=== PATIENT | female | born 1995 | race Caucasian/White ===

== ENCOUNTER 2016-06-09 14:00 | Emergency (ER) | payer OTHER ==
[2016-06-09 14:04] VITALS: BP 125/59; PULSE 122; RESP 16; TEMP 97.6
--- NOTE | 2016-06-09 14:32 | ED ---
General Adult HPI - General Chief complaint: Upper Respiratory Infection Stated complaint: cough Time Seen by Provider: 06/09/16 14:09 Source: patient, RN notes reviewed Mode of arrival: ambulatory Limitations: no limitations - History of Present Illness Initial comments: This is a 20-year-old female who presents with complaints of cough 3 days. Patient also admits to some congestion. Patient states the cough is dry. Patient states cough is painful. Patient denies any shortness of breath. Patient states she has a history of asthma but she is not having any symptoms of shortness of breath. Patient denies any headache, sore throat, otalgia or nausea/vomiting/diarrhea. Patient states she is 7 weeks . Patient denies that she got a flu shot this year. Patient denies any recent fever, chills, shortness breath, chest pain, abdominal pain, cramping, vaginal discharge or bleeding, back pain, numbness, tingling, hematuria, headache, or visual changes, or any other complaints. - Related Data Previous Rx's Medication Instructions Recorded Oseltamivir [Tamiflu] 75 mg PO Q12HR 5 Days 06/09/16 Allergies Allergy/AdvReac Type Severity Reaction Status Date / Time azithromycin Allergy Itching Verified 06/09/16 14:04 cetirizine HCl [From Zyrtec] Allergy Swelling Verified 06/09/16 14:04 codeine Allergy Itching Verified 06/09/16 14:04 Review of Systems ROS Statement: Those systems with pertinent positive or pertinent negative responses have been documented in the HPI. ROS Other: All systems not noted in ROS Statement are negative. Past Medical History Past Medical History: Asthma Additional Past Medical History / Comment(s): OVARIAN CYSTS History of Any Multi-Drug Resistant Organisms: None Reported Past Surgical History: Adenoidectomy, Ear Surgery Past Anesthesia/Blood Transfusion Reactions: No Reported Reaction Past Psychological History: No Psychological Hx Reported Smoking Status: Never smoker Past Alcohol Use History: None Reported Past Drug Use History: None Reported - Past Family History Father Family Medical History: No Reported History General Exam - General Exam Comments Initial Comments: General: The patient is awake and alert, in no distress, and does not appear acutely ill. Eye: Pupils are equal, round and reactive to light, extra-ocular movements are intact. No nystagmus. There is normal conjunctiva bilaterally. No signs of icterus. Ears: TMs pink and pearly with intact cone of light bilaterally. Normal external ear canals Nose: Nasal turbinates are mildly erythematous and edematous. Mouth and throat: There are moist mucous membranes and no oral lesions. Neck: The neck is supple, there is no tenderness or JVD. Cardiovascular: There is a regular rate and rhythm. No murmur, rub or gallop is appreciated. Respiratory: Lungs are clear to auscultation, respirations are non-labored, breath sounds are equal. No wheezes, stridor, rales, or rhonchi. Musculoskeletal: Normal ROM, no tenderness. Strength 5/5. Sensation intact. Radial Pulses equal bilaterally 2+. Neurological: A&O x 3. CN II-XII intact, There are no obvious motor or sensory deficits. Coordination appears grossly intact. Speech is normal. Skin: Skin is warm and dry and no rashes or lesions are noted. Psychiatric: Cooperative, appropriate mood & affect, normal judgment. Limitations: no limitations Course Vital Signs 06/09/16 14:02 Temperature 97.6 F Pulse Rate 122 H Respiratory 16 Rate Blood Pressure 125/59 O2 Sat by Pulse 97 Oximetry Medical Decision Making - Medical Decision Making This is a 20-year-old female presents with cough and congestion 3 days. Patient is 7 weeks . On physical exam patient is afebrile in the EC. Lungs are clear to auscultation bilaterally. Dry cough is present on exam. Influenza was checked. I discussed the risks and benefits of chest x-ray because the patient is . Patient refuses chest X-ray. Influenza A came back positive. I discussed the patient will be started on Tamiflu. Patient was given a dose in the EC. I discussed starting Tamiflu with attending physician Dr. Estrada because the patient is . Dr. Estrada agrees that patient should be started on Tamiflu. Discussed the patient should drink plenty of fluids. I discussed Tylenol for any fevers. I discussed return parameters.Discussed that patient should follow up with PCP/PST MANAGER in one to 2 days or return to the EC for any worsening symptoms or for any further concerns. Patient was receptive to this plan and patient will be discharged home. I discussed this case with attending physician Dr. Estrada who agrees the plan as stated above. - Lab Data Lab Results 06/09/16 Range/Units 14:32 Influenza Type A RNA Detected H (Not Detectd) Influenza Type B (PCR) Not Detected (Not Detectd) Disposition Clinical Impression: Influenza A Disposition: HOME SELF-CARE Condition: Good Instructions: Influenza Vaccine (ED), Influenza (ED) Additional Instructions: Use Tamiflu as prescribed. Please use Tylenol for any pain. Please be sure to drink plenty of fluids. Please follow-up with family doctor and PST MANAGER in the next 2 days. Please return to emergency room if the symptoms increase or worsen or for any other concerns. Prescriptions: Oseltamivir [Tamiflu] 75 mg PO Q12HR 5 Days Referrals: Kailash Villa DO [Primary Care Provider] - 1-2 days Time of Disposition: 15:22
[2016-06-09] MEDS ORDERED: OSELTAMIVIR 75 MG CAP PO STA (15:19)
== END 2016-06-09 15:51 | disposition home or self-care (01) ==
LOC: EC 14:00
DX: O99.511 Diseases of the respiratory system complicating pregnancy, first trimester (principal); J10.1 Influenza due to other identified influenza virus with other respiratory manifestations; Z88.1 Allergy status to other antibiotic agents; Z88.8 Allergy status to other drugs, medicaments and biological substances; Z3A.01 Less than 8 weeks gestation of pregnancy
CPT/HCPCS: 87502; 99283

== ENCOUNTER 2018-08-27 18:21 | Outpatient (CLI) | payer OTHER ==
[2018-08-27 19:04] VITALS: BP 125/70; PULSE 100; RESP 16; TEMP 99.1
--- NOTE | 2018-09-23 09:02 | P.MSEPDOC ---
Presenting Problems - Arrival Data Date of Arrival on Unit: 08/27/18 Time of Arrival on Unit: 18:21 Mode of Transport: Ambulatory - Complaint OB-Reason for Admission/Chief Complaint: Possible Onset of Labor Comment: contractions Medical History - Information : 4 Para: 2 Term: 2 : 0 Abortions: Spontaneous or Elective: 1 Number of Living Children: 2 - Gestational Age Gestational Age by SANTA (wks/days): 25 Weeks and 4 Days Review of Systems - Review of Systems Constitutional: No problems Breast: No problems ENT: No problems Cardiovascular: No problems Respiratory: No problems Gastrointestinal: No problems Genitourinary: No problems Musculoskeletal: No problems Neurological: No problems Skin: No problems Vital Signs - Temperature Temperature: 99.1 F Temperature Source: Oral - Pulse Right Brachial Pulse Rate: 100 Pulse Assessment Method: Automatic Cuff - Respirations Respiratory Rate: 16 Oxygen Delivery Method: Room Air - Blood Pressure Right Arm Blood Pressure: 125/70 Blood Pressure Mean: 88 Blood Pressure Source: Automatic Cuff Medical Screen Scoring (Pre) - Cervical Exam Dilation: 0 cm = 0 Membranes: Intact - Uterine Contractions Frequency: N/A Duration: N/A Intensity: N/A - Maternal Vital Signs Maternal Temperature: N/A Signs of Preeclampsia: N/A Maternal Respirations: N/A - Maternal Trauma Maternal Trauma: N/A - Assessment - Baby A Baseline FHR: 150 Heart Rate - NICHD Category: Category I (Normal) = 0 Position: N/A Station: N/A - Total Score - Baby A Total Score - Baby A: 0 - Total Score - Baby B Total Score - Baby B: 0 - Total Score - Baby C Total Score - Baby C: 0 - Level of Risk - Baby A Level of Risk - Baby A: Low (0-5) - Level of Risk - Baby B Level of Risk - Baby B: Low (0-5) - Level of Risk - Baby C Level of Risk - Baby C: Low (0-5) Physician Notification (Pre) - Physician Notified Physician Notified Date: 08/27/18 Physician Notified Time: 19:04 Physician/Practitioner Notifed:: Esau Spoke With: Esau New Order Received: Yes - Notification Comment Comment: obtain FFN Physician Notification (Post) - Physician Notified Physician Notified Date: 08/27/18 Physician Notified Time: 19:06 Physician/Practitioner Notified:: Esau Spoke With: Esau New Order Received: Yes - Notification Comment Comment: do not send FFN and pt may be discharged home Disposition - Disposition OB Disposition: Discharge to home Discharge Date: 08/27/18 Discharge Time: 19:06 I agree with the RN Medical Screening Exam: Yes Risk & Benefit of care provided described in d/c instruction: Yes Diagnosis: FALSE LABOR BEFORE 37 COMPLETED WEEKS OF GEST, THIRD TRI
== END 2018-08-27 19:08 | disposition home or self-care (01) ==
LOC: FBPOP 18:21
PROVIDERS: ATTEND Obstetrics & Gynecology Obstetrics
DX: O47.02 False labor before 37 completed weeks of gestation, second trimester (principal); Z3A.25 25 weeks gestation of pregnancy
CPT/HCPCS: 99213

== ENCOUNTER 2018-11-17 11:43 | Outpatient (CLI) | payer OTHER ==
[2018-11-17 12:23] LABS: Appearance,Urine Cloudy (Clear); Bacteria,Urine Rare /hpf; Bilirubin,Urine Negative (Negative); Blood,Urine Trace (Negative); Color,Urine Yellow; Glucose,Urine (UA) Negative (Negative); Ketones,Urine Trace (Negative); Leukocyte Esterase,Urine Negative (Negative); Mucus,Urine Rare /hpf; Nitrite,Urine Negative (Negative); PH, Urine 6.5 (5.0-8.0); Protein,Urine Trace (Negative); RBC,Urine 2 /hpf (0-5); Specific Gravity,Urine 1.013 (1.001-1.035); Squamous Epithelial Cell,Urine 15 /hpf (0-4); Urobilinogen,Urine <2.0 mg/dL (<2.0); WBC,Urine 2 /hpf (0-5)
[2018-11-17 12:51] VITALS: BP 133/61; PULSE 113; RESP 16; TEMP 96.8
[2018-11-17 12:51] LABS: Anisocytosis Slight; Basophils % (A) 0 %; Eosinophils # (A) 0.1 k/uL (0-0.7); Eosinophils % (A) 1 %; HCT 31.9 % (34.0-46.0); HGB 10.1 gm/dL (11.4-16.0); Hypochromasia Moderate; Lymphocytes # (A) 0.9 k/uL (1.0-4.8); Lymphocytes % (A) 14 %; MCH 24.3 pg (25.0-35.0); MCHC 31.5 g/dL (31.0-37.0); MCV 77.2 fL (80.0-100.0); Microcytosis Slight; Monocytes # (A) 0.5 k/uL (0-1.0); Monocytes % (A) 8 %; Neutrophils # (A) 4.8 k/uL (1.3-7.7); Neutrophils % (A) 74 %; Platelet Count 272 k/uL (150-450); RBC 4.14 m/uL (3.80-5.40); RDW 16.2 % (11.5-15.5); WBC 6.5 k/uL (3.8-10.6)
[2018-11-17 13:00] LABS: ALT 14 U/L (9-52); AST 17 U/L (14-36); African American GFR (CKD) >90 (>60 ml/min/1.73 sqM); Blood Urea Nitrogen 6 mg/dL (7-17); LDH 452 U/L (313-618); Uric Acid 4.1 mg/dL (3.7-7.4)
--- NOTE | 2018-11-23 10:48 | P.MSEPDOC ---
Presenting Problems - Arrival Data Date of Arrival on Unit: 11/17/18 Time of Arrival on Unit: 11:41 Mode of Transport: Ambulatory - Complaint OB-Reason for Admission/Chief Complaint: PIH Medical History - Information : 4 Para: 3 Number of Living Children: 3 - Gestational Age Gestational Age by SANTA (wks/days): 37 Weeks and 2 Days Review of Systems - Review of Systems Constitutional: No problems Breast: No problems ENT: No problems Cardiovascular: No problems Respiratory: No problems Gastrointestinal: No problems Genitourinary: No problems Musculoskeletal: No problems Neurological: No problems Skin: No problems Vital Signs - Temperature Temperature: 96.8 F Temperature Source: Temporal Artery Scan - Pulse Right Sitting Brachial Pulse Rate: 113 Pulse Assessment Method: Automatic Cuff - Respirations Respiratory Rate: 16 Oxygen Delivery Method: Room Air O2 Sat by Pulse Oximetry: 99 - Blood Pressure Right Arm Sitting Blood Pressure: 133/61 Blood Pressure Mean: 85 Blood Pressure Source: Automatic Cuff Medical Screen Scoring (Pre) - Cervical Exam Dilation: Exam Deferred - Uterine Contractions Frequency: N/A Duration: N/A Intensity: N/A - Maternal Vital Signs Maternal Temperature: N/A Maternal Blood Pressure: N/A Signs of Preeclampsia: N/A Maternal Respirations: N/A - Maternal Trauma Maternal Trauma: N/A - Assessment - Baby A Baseline FHR: 140 Heart Rate - NICHD Category: Category I (Normal) = 0 NST: Reactive Position: N/A Station: N/A - Total Score - Baby A Total Score - Baby A: 0 - Total Score - Baby B Total Score - Baby B: 0 - Total Score - Baby C Total Score - Baby C: 0 - Level of Risk - Baby A Level of Risk - Baby A: Low (0-5) - Level of Risk - Baby B Level of Risk - Baby B: Low (0-5) - Level of Risk - Baby C Level of Risk - Baby C: Low (0-5) Physician Notification (Pre) - Physician Notified Physician Notified Date: 11/17/18 Physician Notified Time: 13:15 Physician/Practitioner Notifed:: dr mcclain Spoke With: dr mcclain New Order Received: Yes - Notification Comment Comment: discharge home at this time Disposition - Disposition OB Disposition: Discharge to home Discharge Date: 11/17/18 Discharge Time: 13:24 I agree with the RN Medical Screening Exam: Yes Risk & Benefit of care provided described in d/c instruction: Yes Diagnosis: RELATED CONDITIONS, UNSPECIFIED, THIRD TRIMESTER
== END 2018-11-17 13:24 | disposition home or self-care (01) ==
LOC: FBPOP 11:43
PROVIDERS: ATTEND Obstetrics & Gynecology
DX: O26.93 Pregnancy related conditions, unspecified, third trimester (principal); Z3A.37 37 weeks gestation of pregnancy
CPT/HCPCS: 59025; 82570; 84156; 82565; 83615; 84450; 84460; 84520; 84550; 85025; 81001; G0463; 99215

== ENCOUNTER 2018-12-02 07:18 | Inpatient (IN) | payer OTHER ==
[2018-12-02] MEDS ORDERED: TERBUTALINE 1 MG/ML VIAL SQ PRN (07:31)
[2018-12-02] MEDS ORDERED: OXYTOCIN 10 UNIT/ML 1 ML VIAL IM PRN (07:31)
[2018-12-02] MEDS ORDERED: LIDOCAINE 0.5% (PF) 5 MG/ML (50 ML SDV) SQ PRN (07:31)
[2018-12-02] MEDS ORDERED: METHYLERGONOVINE 0.2 MG/ML 1 ML AMP IM PRN (07:31)
[2018-12-02] MEDS ORDERED: CARBOPROST TROMETHAMINE 250 MCG/ML 1 ML AMP IM PRN (07:31)
[2018-12-02] MEDS ORDERED: PENICILLIN G POTASSIUM 5,000,000 UNIT in DEXTROSE 5% IN WATER 100 ML IVPB STA ×2 (07:38)
[2018-12-02] MEDS ORDERED: LACTATED RINGERS 1,000 ML IV SCH (07:45)
[2018-12-02] MEDS ORDERED: OXYTOCIN 30 UNITS/500 ML NS 30 UNIT in SALINE 1 500ML.BAG IV SCH (07:45)
[2018-12-02 07:57] VITALS: BMI 50.4
[2018-12-02] MEDS ORDERED: BUTORPHANOL 1 MG/ML 1 ML VIAL IV PRN (08:41)
--- NOTE | 2018-12-02 08:48 | P.HPOB ---
History of Present Illness H&P Date: 12/02/18 Chief Complaint: 39-3/7 weeks, induction The patient is a 23-year-old 4 para 2012 admitted at 39-3/7 weeks as established by last menstrual period and confirmed by 19 week ultrasound. She is admitted for elective induction of labor with all signs reassuring. Her pr egnancy has been essentially uncomplicated and group B strep status is unknown as to group B strep culture was misplaced. As result she will be treated as group B strep positive. She is also known to be Rh- and received RhoGAM at 28 weeks. She has requested tubal ligation which will be carried out should she require . Obstetrical history: 4 para 201-2 previous normal spontaneous vaginal deliveries and one early miscarriage. Current statistics are listed in history present illness. EDC of 12/06/2018 was established by last menstrual period and confirmed by 19 week ultrasound. Laboratory workup demonstrates a blood type of O- with a negative antibody screen. Rubella status is immune. The remainder of the laboratory workup was within normal limits. Early Glucola as well as second trimester Glucola were within normal limits. Group B strep status is unknown as the specimen was misplaced. Gynecologic history: Unremarkable with no history of any infections to include STDs. Review of Systems Review of systems is confined to history of present illness. Past Medical History Past Medical History: Asthma Additional Past Medical History / Comment(s): OVARIAN CYSTS History of Any Multi-Drug Resistant Organisms: None Reported Past Surgical History: Adenoidectomy, Ear Surgery Past Anesthesia/Blood Transfusion Reactions: No Reported Reaction Past Psychological History: Anxiety, Depression Smoking Status: Never smoker Past Alcohol Use History: None Reported Past Drug Use History: None Reported - Past Family History Mother Family Medical History: Cancer, Hypertension Father History Unknown: Yes Family Medical History: Hypertension Medications and Allergies Home Medications Medication Instructions Recorded Confirmed Type Ondansetron [Zofran] 4 mg PO Q12HR PRN 08/27/18 08/27/18 History Pnv No.95/Ferrous Fum/Folic AC 1 tab PO DAILY 08/27/18 08/27/18 History [ Multivitamin Tablet] Allergies Allergy/AdvReac Type Severity Reaction Status Date / Time azithromycin Allergy Itching Verified 11/17/18 11:58 cetirizine HCl [From Zyrte] Allergy Swelling Verified 11/17/18 11:58 codeine Allergy Itching Verified 11/17/18 11:58 Exam Vital Signs Temp Pulse Resp BP Pulse Ox 12/02/18 07:18 97.4 F L 101 H 16 137/82 98 Intake and Output 12/01/18 12/02/18 12/02/18 22:59 06:59 14:59 Other: Weight 146.057 kg In general this is a moderately obese woman in no acute distress. Her heart has a regular rhythm and rate without murmur. Her lungs are clear to auscultation bilaterally in all whitehead. Her abdomen is obese, nondistended, has normal active bowel sounds, soft, nontender, and without any palpable masses aside from uterine fundus. Her extremities without any cyanosis, clubbing, or significant edema and are nontender to palpation bilaterally. Digital cervical examination demonstrates her cervix to 3-4 synovators dilated, approximately 50% effaced with the vertex in presentation at -2 station. Artificial rupture of membranes is carried out demonstrating clear fluid. Assessment and Plan (1) Term Current Visit: Yes Status: Acute Code(s): Z34.90 - ENCNTR FOR SUPRVSN OF NORMAL , UNSP, UNSP TRIMESTER SNOMED Code(s): 54293941 Plan: The patient is admitted for elective induction of labor understanding that there may be a slightly increased risk for delivery. As her group B strep status is unknown as noted above, she will be treated as if positive and antibiotics have been started. Pitocin augmentation will be held for short time in order to attempt to get the antibiotics on board of. She will otherwise have close maternal and surveillance and expectant management will be practiced. She is a good candidate for either IV or epidural analgesia, whichever she may choose.
[2018-12-02 09:11] LABS: Anisocytosis Slight; Basophils # (A) 0.1 k/uL (0-0.2); Basophils % (A) 1 %; Eosinophils # (A) 0.1 k/uL (0-0.7); Eosinophils % (A) 1 %; HCT 32.7 % (34.0-46.0); HGB 10.2 gm/dL (11.4-16.0); Hypochromasia Moderate; Lymphocytes # (A) 1.6 k/uL (1.0-4.8); Lymphocytes % (A) 19 %; MCH 23.8 pg (25.0-35.0); MCHC 31.2 g/dL (31.0-37.0); MCV 76.1 fL (80.0-100.0); Mean Platelet Volume 7.8; Microcytosis Slight; Monocytes # (A) 0.8 k/uL (0-1.0); Monocytes % (A) 9 %; Neutrophils # (A) 5.5 k/uL (1.3-7.7); Neutrophils % (A) 67 %; Platelet Count 221 k/uL (150-450); RDW 16.2 % (11.5-15.5); WBC 8.1 k/uL (3.8-10.6)
[2018-12-02] MEDS ORDERED: PENICILLIN G POTASSIUM 2,500,000 UNIT in DEXTROSE 5% IN WATER 100 ML IVPB SCH ×2 (11:41)
[2018-12-02] MEDS ORDERED: diphenhydrAMINE 25 MG CAP PO PRN (16:18)
[2018-12-02] MEDS ORDERED: LANOLIN CREAM 5 GM TUBE TOPICAL PRN (16:18)
[2018-12-02] MEDS ORDERED: diphenhydrAMINE 50 MG CAP PO PRN (16:18)
[2018-12-02] MEDS ORDERED: BENZOCAINE/MENTHOL SPRAY 1 GM/SPRAY AEROSOL TOPICAL PRN (16:18)
[2018-12-02] MEDS ORDERED: HYDROcodone/APAP 5-325MG 1 EACH TAB PO PRN (16:18)
[2018-12-02] MEDS ORDERED: SIMETHICONE 80 MG CHEWABLE PO PRN (16:18)
[2018-12-02] MEDS ORDERED: WITCH HAZEL 1 EACH MED..PAD TOPICAL PRN (16:18)
[2018-12-02] MEDS ORDERED: diphenhydrAMINE 50 MG/ML 1 ML VIAL IVP PRN ×2 (16:18)
[2018-12-02] MEDS ORDERED: HYDROCORTISONE 2.5% RECTAL CREAM 30 GM TUBE RECTAL PRN (16:18)
[2018-12-02] MEDS ORDERED: HYDROcodone/APAP 7.5-325MG 1 EACH TAB PO PRN (16:18)
[2018-12-02] MEDS ORDERED: IBUPROFEN 600 MG TAB PO PRN (16:18)
[2018-12-02] MEDS ORDERED: ZOLPIDEM 5 MG TAB PO PRN (16:18)
--- NOTE | 2018-12-02 16:24 | P.PROBDLV ---
Vaginal Delivery Note - . Vaginal Delivery Note: The patient is a 23-year-old 4 para 2011 admitted at 39-3/7 weeks by good dating parameters. She is admitted for elective induction of labor with all signs reassuring. Her has been essentially uncomplicated though group B strep status is unknown as the specimen was was placed. She is known to be Rh- and received RhoGAM at 28 weeks. On labor and delivery, antibody prophylaxis was started for possible group B strep. She had artificial rupture of membranes carried out demonstrating clear fluid and had Pitocin augmentation started and ultimately. She made progress through the active phase of labor fairly slowly but then suddenly progressed to complete with a significant urge to push and no epidural in place per her wishes. I was called urgently to the hospital for delivery and arrived shortly after delivery had been carried out by the nurses. She had a precipitous normal spontaneous vaginal delivery of a viable 8 lbs. 7 oz. baby boy with Apgars of 9 at 1 minute and 9 at 5 minutes delivered in the occiput anterior position. cord blood was collected for evaluation for the necessity of RhoGAM. The placenta was delivered spontaneously, intact, and grossly normal with a grossly normal, centrally inserted and very long three-vessel cord. There was a small first-degree perineal laceration which a flap of skin was created on the left perineal body which was tacked down with a single [id number] stitch of 3-0 chromic catgut without difficulty. Estimated blood loss for the entire case was approximately 250 mL. There were no complications aside from the precipitous nature of the delivery. All sponge, instrument, and needle counts were correct. Both mother and are resting comfortably in recovery.
[2018-12-02] MEDS ORDERED: OXYTOCIN 20 UNITS/1000 ML NS 1,000 ML IV SCH (16:30)
[2018-12-02] MEDS: SENNOSIDES-DOCUSATE SODIUM 1 EACH TAB PO SCH (19:36)
[2018-12-02] MEDS ORDERED: Rhogam IMMUNE GLOBULIN 1,500 UNIT/1 ML IM ONE (23:06)
[2018-12-03] MEDS: ACETAMINOPHEN TAB 325 MG TAB PO PRN ×3 (00:08→14:22)
--- NOTE | 2018-12-03 06:26 | P.DS ---
Providers Date of admission: 12/02/18 07:18 Expected date of discharge: 12/03/18 Attending physician: Isai Anderson Primary care physician: Stated None - Discharge Diagnosis(es) (1) Term Current Visit: Yes Status: Acute (2) Normal spontaneous vaginal delivery Current Visit: Yes Status: Acute Hospital Course: The patient is a 23-year-old 4 para 2012 admitted at 39-3/7 weeks by good dating parameters. She is admitted for elective induction of labor with all signs reassuring. She is Rh- and received RhoGAM at 28 weeks but otherwise had an uncomplicated . On labor and delivery, she had antibiotic prophylaxis started as group B strep status was unknown, the specimen having been misplaced at 36 weeks. She had artificial rupture of membranes carried out demonstrating clear fluid and ultimately had Pitocin augmentation started. She made fairly steady progress throughout the active phase of labor to complete and then precipitously delivered, normal spontaneous vaginal delivery of a viable 8 lbs. 7 oz. baby boy with Apgars of 9 at 1 minute and 9 at 5 minutes. Her course was unremarkable vital signs remained stable and her temperature was afebrile throughout. She was deemed stable for discharge on day #1 was discharged home to follow-up in the office in 6 weeks routinely. Discharge instructions included calling for any significantly increased bleeding or foul-smelling lochia, significantly increased fever abdominal pain, perineal complaints, breast complaints, or anything else that concerned her. She was additionally instructed to have nothing in the vagina for at least 6 weeks time to include intercourse. She understood her instructions and agrees to follow up as noted above. Discharge medications included only [id number] analgesic pain medications as well as continued vitamins as she has opted to breast-feed. She was additionally given a prescription for Zoloft 50 mg daily as she has struggled with depression in the past, #30 dispensed with 11 refills. Maternal blood type is O- and cord blood was sent for evaluation for the necessity of RhoGAM prior to discharge. Rubella status is immune. Procedures: #1. Pitocin induction of 2. Antibiotic prophylaxis #3. Artificial rupture of membranes #4. Normal spontaneous vaginal delivery Patient Condition at Discharge: Good Plan - Discharge Summary Discharge Rx Participant: Yes New Discharge Prescriptions: No Action Ondansetron [Zofran] 4 mg PO Q12HR PRN PRN Reason: Nausea Pnv No.95/Ferrous Fum/Folic AC [ Multivitamin Tablet] 1 tab PO DAILY Discharge Medication List Ondansetron [Zofran] 4 mg PO Q12HR PRN 08/27/18 [History] Pnv No.95/Ferrous Fum/Folic AC [ Multivitamin Tablet] 1 tab PO DAILY 08/27/18 [History] Follow up Appointment(s)/Referral(s): Isai Anderson MD [STAFF PHYSICIAN] - 6 Weeks Discharge Disposition: HOME SELF-CARE
[2018-12-03] MEDS: SENNOSIDES-DOCUSATE SODIUM 1 EACH TAB PO SCH (08:51)
[2018-12-03 19:50] VITALS: BP 120/70; PULSE 87; RESP 16; TEMP 98.4
== END 2018-12-03 18:45 | disposition home or self-care (01) | DRG 807 ==
LOC: 4FBP 07:18
PROVIDERS: ADMIT Obstetrics & Gynecology; ATTEND Obstetrics & Gynecology
PROC: 10E0XZZ Delivery of Products of Conception, External Approach (ICD-10-PCS; principal; 2018-12-02)
PROC: 0HQ9XZZ Repair Perineum Skin, External Approach (ICD-10-PCS; 2018-12-02)
PROC: 10907ZC Drainage of Amniotic Fluid, Therapeutic from Products of Conception, Via Natural or Artificial Opening (ICD-10-PCS; 2018-12-02)
PROC: 3E033VJ Introduction of Other Hormone into Peripheral Vein, Percutaneous Approach (ICD-10-PCS; 2018-12-02)
DX: O26.893 Other specified pregnancy related conditions, third trimester (principal); Z37.0 Single live birth; O70.0 First degree perineal laceration during delivery; O99.344 Other mental disorders complicating childbirth; F32.9 Major depressive disorder, single episode, unspecified; F41.9 Anxiety disorder, unspecified; O99.52 Diseases of the respiratory system complicating childbirth; J45.909 Unspecified asthma, uncomplicated; O62.3 Precipitate labor; Z67.91 Unspecified blood type, Rh negative; O99.214 Obesity complicating childbirth; Z3A.39 39 weeks gestation of pregnancy; Z88.1 Allergy status to other antibiotic agents; Z88.5 Allergy status to narcotic agent; Z82.49 Family history of ischemic heart disease and other diseases of the circulatory system; Z80.9 Family history of malignant neoplasm, unspecified
CPT/HCPCS: 85025; 85461; 86850; 86900; 86901

== ENCOUNTER 2019-08-18 10:19 | Observation (INO) | payer OTHER ==
[2019-08-18] MEDS ORDERED: SODIUM CHLORIDE 0.9% 1,000 ML IV ONE (10:48)
[2019-08-18] MEDS ORDERED: HYDROmorphone 0.5 MG/0.5 ML SYRINGE IVP STA ×2 (10:48→13:11)
[2019-08-18] MEDS ORDERED: ONDANSETRON 4 MG/2 ML VIAL IVP STA (10:48)
--- NOTE | 2019-08-18 10:52 | ED ---
Abdominal Pain HPI - General Chief Complaint: Abdominal Pain Stated Complaint: right abd pain Time Seen by Provider: 08/18/19 10:26 Source: patient, family Mode of arrival: ambulatory Limitations: no limitations - History of Present Illness Initial Comments: 24-year-old female presenting today for chief complaint of right upper quadrant abdominal pain x 16 hours. Patient states since May is on on and off her upper quadrant pain usually after eating. Patient states he specifically increases with eating fatty foods. She states it usually lasts about 2 hours and then goes away. She states that she began to have an attack after eating kielbasa last night but this episode was persistent and has no lasted into the morning. Patient denies admits to nausea, vomiting. Denies diarrhea, melena hematochezia, emesis. Patient denies fevers, malaise. Patient has no additional complaints. Upon arrival patient appears nontoxic but does appear uncomfortable. - Related Data Home Medications Medication Instructions Recorded Confirmed No Known Home Medications 08/18/19 08/18/19 Allergies Allergy/AdvReac Type Severity Reaction Status Date / Time azithromycin Allergy Itching Verified 08/18/19 10:50 cetirizine HCl [From Zyr[facility]] Allergy Swelling Verified 08/18/19 10:50 codeine Allergy Itching Verified 08/18/19 10:50 Review of Systems ROS Statement: Those systems with pertinent positive or pertinent negative responses have been documented in the HPI. ROS Other: All systems not noted in ROS Statement are negative. Past Medical History Past Medical History: Asthma Additional Past Medical History / Comment(s): OVARIAN CYSTS History of Any Multi-Drug Resistant Organisms: None Reported Past Surgical History: Adenoidectomy, Ear Surgery Past Anesthesia/Blood Transfusion Reactions: No Reported Reaction Past Psychological History: Anxiety, Depression Smoking Status: Never smoker Past Alcohol Use History: None Reported Past Drug Use History: None Reported - Past Family History Mother Family Medical History: Cancer, Hypertension Father History Unknown: Yes Family Medical History: Hypertension General Exam - General Exam Comments Initial Comments: General: The patient is awake and alert, in no distress Eye: +3 mm pupils are equal, round and reactive to light, extra-ocular movements are intact. No nystagmus. There is normal conjunctiva bilaterally. No signs of icterus. Ears, nose, mouth and throat: There are moist mucous membranes and no oral lesions. Neck: The neck is supple, there is no tenderness or JVD. Cardiovascular: There is a regular rate and rhythm. No murmur, rub or gallop is appreciated. Respiratory: Lungs are clear to auscultation, respirations are non-labored, breath sounds are equal. No wheezes, stridor, rales, or rhonchi. Gastrointestinal: Soft, non-distended,RUQ tender to palpation of the abdomen, remainign abdomen is nontender and without masses or organomegaly noted. There is no rebound or guarding present. No CVA tenderness. Bowel sounds are unremarkable.+ murphys sign. Musculoskeletal: Normal ROM, no tenderness. Strength 5/5. Sensation intact. Radial pulses equal bilaterally 2+. Neurological: A&O x 3. CN II-XII intact grossly, There are no obvious motor or sensory deficits. Coordination appears grossly intact. Speech is normal. Skin: Skin is warm and dry and no rashes or lesions are noted. Psychiatric: Cooperative, appropriate mood & affect, normal judgment. Limitations: no limitations Course Vital Signs 08/18/19 08/18/19 08/18/19 10:20 13:00 14:34 Temperature 98.1 F Pulse Rate 89 58 L 65 Respiratory 18 18 20 Rate Blood Pressure 118/80 122/61 133/80 O2 Sat by Pulse 99 100 100 Oximetry Medical Decision Making - Medical Decision Making Ultrasound concerning for cholelithiasis with sludge. Patient pain intractable, persistent despite Dilaudid therapy. pt case discussed wtih Dr. Linder who recommended surgical consultation. DR Cohen is agreeable to admission for symptomatic treatment and possible elective cholecystectomy. Patient agreeable to this care plan--Dr. Linder agreeable to care plan. - Lab Data Result diagrams: 08/18/19 10:55 08/18/19 10:55 Lab Results 08/18/19 08/18/19 08/18/19 Range/Units 10:38 10:38 10:55 WBC 9.2 (3.8-10.6) k/uL RBC 4.70 (3.80-5.40) m/uL Hgb 11.4 (11.4-16.0) gm/dL Hct 37.4 (34.0-46.0) % MCV 79.6 L (80.0-100.0) fL MCH 24.2 L (25.0-35.0) pg MCHC 30.3 L (31.0-37.0) g/dL RDW 15.6 H (11.5-15.5) % Plt Count 311 (150-450) k/uL Neutrophils % 77 % Lymphocytes % 13 % Monocytes % 7 % Eosinophils % 1 % Basophils % 0 % Neutrophils # 7.0 (1.3-7.7) k/uL Lymphocytes # 1.2 (1.0-4.8) k/uL Monocytes # 0.7 (0-1.0) k/uL Eosinophils # 0.1 (0-0.7) k/uL Basophils # 0.0 (0-0.2) k/uL Hypochromasia Slight Sodium (137-145) mmol/L Potassium (3.5-5.1) mmol/L Chloride (98-107) mmol/L Carbon Dioxide (22-30) mmol/L Anion Gap mmol/L BUN (7-17) mg/dL Creatinine (0.52-1.04) mg/dL Est GFR (CKD-EPI)AfAm (>60 ml/min/1.73 sqM) Est GFR (CKD-EPI)NonAf (>60 ml/min/1.73 sqM) Glucose (74-99) mg/dL Calcium (8.4-10.2) mg/dL Total Bilirubin (0.2-1.3) mg/dL AST (14-36) U/L ALT (4-34) U/L Alkaline Phosphatase (38-126) U/L Total Protein (6.3-8.2) g/dL Albumin (3.5-5.0) g/dL Amylase (30-110) U/L Lipase (23-300) U/L Urine Color Light Yellow Urine Appearance Clear (Clear) Urine pH 7.5 (5.0-8.0) Ur Specific [place] 1.010 (1.001-1.035) Urine Protein Negative (Negative) Urine Glucose (UA) Negative (Negative) Urine Ketones Negative (Negative) Urine Blood Trace H (Negative) Urine Nitrite Negative (Negative) Urine Bilirubin Negative (Negative) Urine Urobilinogen <2.0 (<2.0) mg/dL Ur Leukocyte Esterase Negative (Negative) Urine RBC 2 (0-5) /hpf Urine WBC <1 (0-5) /hpf Ur Squamous Epith Cells 9 H (0-4) /hpf Urine Mucus Rare H (None) /hpf Urine HCG, Qual Not Detected (Not Detectd) 08/18/19 Range/Units 10:55 WBC (3.8-10.6) k/uL RBC (3.80-5.40) m/uL Hgb (11.4-16.0) gm/dL Hct (34.0-46.0) % MCV (80.0-100.0) fL MCH (25.0-35.0) pg MCHC (31.0-37.0) g/dL RDW (11.5-15.5) % Plt Count (150-450) k/uL Neutrophils % % Lymphocytes % % Monocytes % % Eosinophils % % Basophils % % Neutrophils # (1.3-7.7) k/uL Lymphocytes # (1.0-4.8) k/uL Monocytes # (0-1.0) k/uL Eosinophils # (0-0.7) k/uL Basophils # (0-0.2) k/uL Hypochromasia Sodium 135 L (137-145) mmol/L Potassium 4.3 (3.5-5.1) mmol/L Chloride 106 (98-107) mmol/L Carbon Dioxide 24 (22-30) mmol/L Anion Gap 5 mmol/L BUN 11 (7-17) mg/dL Creatinine 0.64 (0.52-1.04) mg/dL Est GFR (CKD-EPI)AfAm >90 (>60 ml/min/1.73 sqM) Est GFR (CKD-EPI)NonAf >90 (>60 ml/min/1.73 sqM) Glucose 99 (74-99) mg/dL Calcium 9.2 (8.4-10.2) mg/dL Total Bilirubin 0.7 (0.2-1.3) mg/dL AST 20 (14-36) U/L ALT 14 (4-34) U/L Alkaline Phosphatase 84 (38-126) U/L Total Protein 7.4 (6.3-8.2) g/dL Albumin 4.2 (3.5-5.0) g/dL Amylase 66 (30-110) U/L Lipase 64 (23-300) U/L Urine Color Urine Appearance (Clear) Urine pH (5.0-8.0) Ur Specific [place] (1.001-1.035) Urine Protein (Negative) Urine Glucose (UA) (Negative) Urine Ketones (Negative) Urine Blood (Negative) Urine Nitrite (Negative) Urine Bilirubin (Negative) Urine Urobilinogen (<2.0) mg/dL Ur Leukocyte Esterase (Negative) Urine RBC (0-5) /hpf Urine WBC (0-5) /hpf Ur Squamous Epith Cells (0-4) /hpf Urine Mucus (None) /hpf Urine HCG, Qual (Not Detectd) Disposition Clinical Impression: Cholelithiases, Sludge in gallbladder, Intractable abdominal pain Disposition: ADMITTED IP TO THIS [facility] Condition: Stable Is patient prescribed a controlled substance at d/c from ED?: No Referrals: Kailash Villa DO [Primary Care Provider] - 1-2 days Time of Disposition: 14:17 Decision to Admit Reason: Admit from EC Decision Date: 08/18/19 Decision Time: 14:17
[2019-08-18 11:07] LABS: Basophils % (A) 0 %; Eosinophils # (A) 0.1 k/uL (0-0.7); Eosinophils % (A) 1 %; HCT 37.4 % (34.0-46.0); HGB 11.4 gm/dL (11.4-16.0); Hypochromasia Slight; Lymphocytes # (A) 1.2 k/uL (1.0-4.8); Lymphocytes % (A) 13 %; MCH 24.2 pg (25.0-35.0); MCHC 30.3 g/dL (31.0-37.0); MCV 79.6 fL (80.0-100.0); Mean Platelet Volume 8.1; Monocytes # (A) 0.7 k/uL (0-1.0); Monocytes % (A) 7 %; Neutrophils % (A) 77 %; Platelet Count 311 k/uL (150-450); RDW 15.6 % (11.5-15.5); WBC 9.2 k/uL (3.8-10.6)
[2019-08-18] MEDS: SODIUM CHLORIDE 0.9% 1,000 ML IV SCH ×2 (11:09→19:46)
[2019-08-18 11:11] LABS: Appearance,Urine Clear (Clear); Bilirubin,Urine Negative (Negative); Blood,Urine Trace (Negative); Color,Urine Light Yellow; Glucose,Urine (UA) Negative (Negative); Ketones,Urine Negative (Negative); Leukocyte Esterase,Urine Negative (Negative); Mucus,Urine Rare /hpf; Nitrite,Urine Negative (Negative); PH, Urine 7.5 (5.0-8.0); Protein,Urine Negative (Negative); RBC,Urine 2 /hpf (0-5); Squamous Epithelial Cell,Urine 9 /hpf (0-4); Urobilinogen,Urine <2.0 mg/dL (<2.0); WBC,Urine <1 /hpf (0-5)
[2019-08-18 11:24] LABS: ALT 14 U/L (4-34); AST 20 U/L (14-36); African American GFR (CKD) >90 (>60 ml/min/1.73 sqM); Albumin 4.2 g/dL (3.5-5.0); Alkaline Phosphatase 84 U/L (38-126); Amylase 66 U/L (30-110); Anion Gap 5 mmol/L; Blood Urea Nitrogen 11 mg/dL (7-17); Calcium 9.2 mg/dL (8.4-10.2); Carbon Dioxide 24 mmol/L (22-30); Chloride 106 mmol/L (98-107); Glucose 99 mg/dL (74-99); Non-African American GFR(CKD) >90 (>60 ml/min/1.73 sqM); Potassium 4.3 mmol/L (3.5-5.1); Sodium 135 mmol/L (137-145); Total Bilirubin 0.7 mg/dL (0.2-1.3); Total Protein 7.4 g/dL (6.3-8.2)
--- NOTE | 2019-08-18 12:55 | US ---
EXAMINATION TYPE: US abdomen limited DATE OF EXAM: 08/18/2019 COMPARISON: NONE CLINICAL HISTORY: RUQ pain. RUQ pain and N/V x 1 day EXAM MEASUREMENTS: Liver Length: 20.3 cm Gallbladder Wall: 0.3 cm CBD: 0.4 cm Right Kidney: 9.6 x 4.9 x 4.9 cm Difficult and limited study due to patient body habitus Pancreas: obscured by overlying midline bowel gas Liver: enlarged and echotexture is somewhat heterogeneous Gallbladder: measures 12.5cm in length, low level echoes with multiple echogenic shadowing foci, wal l measures wnl Evidence for sonographic Garcia's sign: yes CBD: visualized portions wnl, limited by overlying bowel gas Right Kidney: wnl IMPRESSION: Exam is limited. Liver is enlarged, correlate for hepatic steatosis. Cholelithiasis, poss ible associated tumefactive sludge
[2019-08-18] MEDS ORDERED: KETOROLAC 30 MG/ML 1 ML VIAL IVP STA (13:29)
[2019-08-18] MEDS ORDERED: NALOXONE 0.4 MG/ML 1 ML VIAL IV PRN (15:16)
[2019-08-18] MEDS: HYDROmorphone 0.5 MG/0.5 ML SYRINGE IVP PRN ×2 (17:37→21:44)
--- NOTE | 2019-08-18 18:27 | P.GSHP ---
History of Present Illness H&P Date: 08/18/19 Chief Complaint: Right upper quadrant pain This 20-year-old female admitted to the hospital was read quadrant pain. Patient had a three-month history of intermittent right upper quadrant pain. She is known gallstones. Past Medical History Past Medical History: Asthma Additional Past Medical History / Comment(s): OVARIAN CYSTS. 3 vag births History of Any Multi-Drug Resistant Organisms: None Reported Past Surgical History: Adenoidectomy, Ear Surgery Past Anesthesia/Blood Transfusion Reactions: No Reported Reaction Past Psychological History: Anxiety, Depression Smoking Status: Never smoker Past Alcohol Use History: None Reported Past Drug Use History: None Reported - Past Family History Mother Family Medical History: Cancer, Hypertension Father History Unknown: Yes Family Medical History: Hypertension Medications and Allergies Home Medications Medication Instructions Recorded Confirmed Type No Known Home Medications 08/18/19 08/18/19 History Allergies Allergy/AdvReac Type Severity Reaction Status Date / Time azithromycin Allergy Itching Verified 08/18/19 10:50 cetirizine HCl [From [facility]] Allergy Swelling Verified 08/18/19 10:50 codeine Allergy Itching Verified 08/18/19 10:50 Surgical - Exam Vital Signs Temp Pulse Resp BP Pulse Ox 98.1 F 89 18 118/80 99 08/18/19 10:20 08/18/19 10:20 08/18/19 10:20 08/18/19 10:20 08/18/19 10:20 - General Morbidly obese well developed - Eyes PERRL - ENT normal pinna - Neck no masses - Respiratory normal expansion - Cardiovascular Rhythm: regular - Abdomen Mild right quadrant pain Abdomen: soft Results - Labs 08/18/19 10:55 08/18/19 10:55 Abnormal Lab Results - Last 24 Hours (Table) 08/18/19 08/18/19 08/18/19 Range/Units 10:38 10:55 10:55 MCV 79.6 L (80.0-100.0) fL MCH 24.2 L (25.0-35.0) pg MCHC 30.3 L (31.0-37.0) g/dL RDW 15.6 H (11.5-15.5) % Sodium 135 L (137-145) mmol/L Urine Blood Trace H (Negative) Ur Squamous Epith Cells 9 H (0-4) /hpf Urine Mucus Rare H (None) /hpf Diabetes panel 08/18/19 Range/Units 10:55 Sodium 135 L (137-145) mmol/L Potassium 4.3 (3.5-5.1) mmol/L Chloride 106 (98-107) mmol/L Carbon Dioxide 24 (22-30) mmol/L BUN 11 (7-17) mg/dL Creatinine 0.64 (0.52-1.04) mg/dL Glucose 99 (74-99) mg/dL Calcium 9.2 (8.4-10.2) mg/dL AST 20 (14-36) U/L ALT 14 (4-34) U/L Alkaline Phosphatase 84 (38-126) U/L Total Protein 7.4 (6.3-8.2) g/dL Albumin 4.2 (3.5-5.0) g/dL Calcium panel 08/18/19 Range/Units 10:55 Calcium 9.2 (8.4-10.2) mg/dL Albumin 4.2 (3.5-5.0) g/dL Pituitary panel 08/18/19 Range/Units 10:55 Sodium 135 L (137-145) mmol/L Potassium 4.3 (3.5-5.1) mmol/L Chloride 106 (98-107) mmol/L Carbon Dioxide 24 (22-30) mmol/L BUN 11 (7-17) mg/dL Creatinine 0.64 (0.52-1.04) mg/dL Glucose 99 (74-99) mg/dL Calcium 9.2 (8.4-10.2) mg/dL Adrenal panel 08/18/19 Range/Units 10:55 Sodium 135 L (137-145) mmol/L Potassium 4.3 (3.5-5.1) mmol/L Chloride 106 (98-107) mmol/L Carbon Dioxide 24 (22-30) mmol/L BUN 11 (7-17) mg/dL Creatinine 0.64 (0.52-1.04) mg/dL Glucose 99 (74-99) mg/dL Calcium 9.2 (8.4-10.2) mg/dL Total Bilirubin 0.7 (0.2-1.3) mg/dL AST 20 (14-36) U/L ALT 14 (4-34) U/L Alkaline Phosphatase 84 (38-126) U/L Total Protein 7.4 (6.3-8.2) g/dL Albumin 4.2 (3.5-5.0) g/dL Assessment and Plan Assessment: Cholecystitis Cholelithiasis We'll perform laparoscopic ostectomy in the a.m.
[2019-08-18] MEDS: KETOROLAC 30 MG/ML 1 ML VIAL IVP PRN (19:46)
[2019-08-18] MEDS ORDERED: ALBUTEROL NEBULIZED 2.5 MG/3 ML INHALATION PRN (21:58)
--- NOTE | 2019-08-18 22:31 | P.CONS ---
History of Present Illness - Reason for Consult Consult date: 08/18/19 Medical management Requesting physician: Hetah Cohen - Chief Complaint Acute abdominal pain, acute cholecystitis and cholelithiasis, history of as - History of Present Illness 24-year-old female one of Dr. Vee patient with the past medical history of asthma and multiple ovarian cyst who apparently presented to the emergency room at [employer] with significant right upper quadrant discomfort started at 11:00 last night did not let up since patient continued to have significant nausea with no vomiting her symptoms apparently has been on and off previously which is to be very mild this time was severely discomfort patient apparently have kielbasa the night before which trigger significant pain and discomfort. Ended up coming to the emergency department her white blood cell was normal no major abnormality in her liver enzyme. Her abdominal ultrasound was performed and showed cholelithiasis with sludge as well. Patient was started on hydration pain management was seen Dr. Cohen surgery will be planned for intervention for cholecystectomy [employer] tomorrow. Patient was placed on antibiotics for ascending cholangitis with the possibility of an infection in the common duct. Review of Systems CONSTITUTIONAL: Well-developed no acute respiratory distress. EYES: No icterus sclerae, no conjunctivitis. EARS, NOSE, MOUTH, THROAT, and FACE: No sore throat, lymphadenopathy, carotid bruits or deformity. RESPIRATORY: No SOB cough or wheezes. History of asthma with no flareup lately. CARDIOVASCULAR: No CP, Palpitation, PND, Orthopnea, or angina. GASTROINTESTINAL: No Abd pain, Nausea or vomiting, no Diarrhea or constipation, No GI Bleed, no distention or masses. Positive gallstone with severe abdominal pain and discomfort. GENITOURINARY: Negative for Hematuria or UTI, no kidney stones. INTEGUMENT/BREAST: Negative for any muscular injury with mild osteoarthritis.. HEMATOLOGIC/LYMPHATIC: Negative for bleed or purpura. MUSCULOSKELTAL: Negative for Myalgia or arthralgia. NEURLOGICAL: No LOC, Sz or syncope, blurred vision dizziness or abnormality.. BEHAVIORAL/PSYCH: Negative. ENDOCRINE: Negative. Past Medical History Past Medical History: Asthma Additional Past Medical History / Comment(s): OVARIAN CYSTS. 3 vag births History of Any Multi-Drug Resistant Organisms: None Reported Past Surgical History: Adenoidectomy, Ear Surgery Past Anesthesia/Blood Transfusion Reactions: No Reported Reaction Past Psychological History: Anxiety, Depression Smoking Status: Never smoker Past Alcohol Use History: None Reported Past Drug Use History: None Reported - Past Family History Mother Family Medical History: Cancer, Hypertension Father History Unknown: Yes Family Medical History: Hypertension Medications and Allergies Home Medications Medication Instructions Recorded Confirmed Type No Known Home Medications 08/18/19 08/18/19 History Allergies Allergy/AdvReac Type Severity Reaction Status Date / Time azithromycin Allergy Itching Verified 08/18/19 10:50 cetirizine HCl [From [facility]] Allergy Swelling Verified 08/18/19 10:50 codeine Allergy Itching Verified 08/18/19 10:50 Physical Exam Vitals: Vital Signs Temp Pulse Pulse Resp BP BP Pulse Ox 08/18/19 19:54 98.2 F 78 18 132/78 99 08/18/19 16:03 98.4 F 97 18 133/70 100 08/18/19 15:31 98.2 F 67 18 109/67 100 08/18/19 14:34 65 20 133/80 100 08/18/19 13:00 58 L 18 122/61 100 08/18/19 10:20 98.1 F 89 18 118/80 99 Intake and Output 08/18/19 08/18/19 08/18/19 06:59 14:59 22:59 Other: Weight 140.614 kg 153.315 kg General Appearance: Alert, cooperative, no distress, appears stated age. Morbidly obese Neck HEENT: Supple, no lymphadenopathy, no thyroid enlargement, no carotid bruits. Lungs: Clear to auscultation without crackles or wheezes no rhonchi, no deformity. Chest Wall: Chest wall normal expansion with deep inspiration no tenderness and no deformity was found on exam, no costochondral pain or discomfort. Heart: Regular rate and rhythm, S1, S2 normal, no murmur, rub or gallop. Back: Symmetric, no curvature, ROM normal, no CVA tenderness. Abdomen: Soft significant discomfort in the midepigastric and right upper quadra nt area with tenderness no rebound or rigidity. Extremities: Extremities normal, atraumatic, no cyanosis or edema. Pulses: 2+ and symmetric. Skin: Skin color, texture, tugor normal, no rashes or lesions. Neurologic: Alert oriented x3 cranial nerves II through XII intact, no motor deficit, no abnormal balance or gait. Results CBC & Chem 7: 08/18/19 10:55 08/18/19 10:55 Labs: Abnormal Lab Results - Last 24 Hours (Table) 08/18/19 08/18/19 08/18/19 Range/Units 10:38 10:55 10:55 MCV 79.6 L (80.0-100.0) fL MCH 24.2 L (25.0-35.0) pg MCHC 30.3 L (31.0-37.0) g/dL RDW 15.6 H (11.5-15.5) % Sodium 135 L (137-145) mmol/L Urine Blood Trace H (Negative) Ur Squamous Epith Cells 9 H (0-4) /hpf Urine Mucus Rare H (None) /hpf Assessment and Plan Assessment: 1 severe abdominal pain: Combination of acute cholecystitis and cholelithiasis, patient to continue on hydration along with pain management will be going for surgery tomorrow morning. 2 acute cholelithiasis and cholecystitis: Will require surgery in the next 24 hours. 3 possible ascending cholangitis: Patient was started on Rocephin continue antibiotic watch for any elevated white blood cell or fever. 4 history of asthma: Continue Ventolin inhaler on as-needed basis. 5 severe GERD: Patient will be on pantoprazole 40 mg twice a day. 6 DVT prophylaxis: Patient will be on heparin subcutaneous and knee-high KATHLEEN hose. CODE STATUS: Full code. Dr. Cohen thank you much for the consult if I can be any further help to please let me know.
[2019-08-18] MEDS: PANTOPRAZOLE 40 MG/10 ML VIAL IVP SCH (23:49)
[2019-08-19] MEDS: HYDROmorphone 0.5 MG/0.5 ML SYRINGE IVP PRN ×4 (00:51→20:32)
[2019-08-19] MEDS: KETOROLAC 30 MG/ML 1 ML VIAL IVP PRN ×3 (02:14→18:59)
[2019-08-19] MEDS: SODIUM CHLORIDE 0.9% 1,000 ML IV SCH ×3 (02:14→20:40)
[2019-08-19] MEDS: PANTOPRAZOLE 40 MG/10 ML VIAL IVP SCH ×2 (07:33→20:32)
[2019-08-19] MEDS ORDERED: IV FLUID CONTINUATION 300 ML IV ONE (10:29)
[2019-08-19] MEDS ORDERED: fentaNYL (PF) 50 MCG/ML 2 ML AMP IVP ONE (10:43)
[2019-08-19] MEDS ORDERED: DEXAMETHASONE SOD PHOS (MDV) 100 MG/10 ML VIAL IVP ONE (10:43)
[2019-08-19] MEDS ORDERED: ONDANSETRON 4 MG/2 ML VIAL IVP ONE (10:44)
[2019-08-19] MEDS ORDERED: HEPARIN SODIUM,PORCINE 5,000 UNIT/ML 1 ML VIAL SQ ONE (11:08)
[2019-08-19] MEDS ORDERED: ROCURONIUM BROMIDE 10 MG/ML 5 ML VIAL IV ONE (11:10)
[2019-08-19] MEDS ORDERED: GLYCOPYRROLATE 0.2 MG/ML 2 ML VIAL ONE (11:10)
[2019-08-19] MEDS ORDERED: MIDAZOLAM 2 MG/2 ML VIAL ONE (11:10)
[2019-08-19] MEDS ORDERED: PROPOFOL 10 MG/ML 20 ML VIAL IV ONE (11:10)
[2019-08-19] MEDS ORDERED: KETOROLAC 30 MG/ML 1 ML VIAL ONE (11:10)
[2019-08-19] MEDS ORDERED: LIDOCAINE 1% INJ 10MG/ML (20 ML MDV) ONE (11:10)
[2019-08-19] MEDS ORDERED: fentaNYL (PF) 50 MCG/ML 2 ML AMP ONE (11:10)
[2019-08-19] MEDS ORDERED: SUCCINYLCHOLINE CHLORIDE 100 MG/5 ML SYR IV ONE (11:10)
[2019-08-19] MEDS ORDERED: NEOSTIGMINE 1 MG/ML 10 ML VIAL ONE (11:10)
[2019-08-19] MEDS ORDERED: SODIUM CHLORIDE 0.9% 50 ML with ceFAZolin 2,000 MG IV ONE ×2 (11:15)
[2019-08-19] MEDS ORDERED: BUPIVACAIN-EPI 0.25%-1:200,000 30 ML VIAL SQ ONE (11:15)
[2019-08-19] MEDS ORDERED: ceFAZolin 3 GM in SODIUM CHLORIDE 0.9% 100 ML IVPB ONE (11:15)
--- NOTE | 2019-08-19 13:23 | P.PN ---
Subjective Progress Note Date: 08/19/19 24-year-old female one of Dr. Vee patient with the past medical history of asthma and multiple ovarian cyst who apparently presented to the emergency room at [employer] with significant right upper quadrant discomfort started at 11:00 last night did not let up since patient continued to have significant nausea with no vomiting her symptoms apparently has been on and off previously which is to be very mild this time was severely discomfort patient apparently have kielbasa the night before which trigger significant pain and discomfort. Ended up coming to the emergency department her white blood cell was normal no major abnormality in her liver enzyme. Her abdominal ultrasound was performed and showed cholelithiasis with sludge as well. Patient was started on hydration pain management was seen Dr. Cohen surgery will be planned for intervention for cholecystectomy [employer] tomorrow. Patient was placed on antibiotics for ascending cholangitis with the possibility of an infection in the common duct. 08/18: Patient is seen today in follow-up. She continues to have significant pain to the right upper quadrant and epigastric area. She is scheduled for laparoscopic cholecystectomy today with Dr. Cohen. She has been afebrile, heart rate 78, blood pressure 147/83, pulse ox 98% on room air. Patient is utilizing incentive spirometry and reaching 3000. KATHLEEN hose will be ordered. Anticipate probable discharge home later today. Patient is concerned about going home because she has a 9-month-old baby at home along with 2 older children. Review of Systems CONSTITUTIONAL: Well-developed no acute respiratory distress. Denies fever but denies chills. EYES: No icterus sclerae, no conjunctivitis. EARS, NOSE, MOUTH, THROAT, and FACE: No sore throat, lymphadenopathy, carotid bruits or deformity. RESPIRATORY: No SOB cough or wheezes. History of asthma with no flareup lately. CARDIOVASCULAR: No CP, Palpitation, PND, Orthopnea, or angina. GASTROINTESTINAL: Reports right upper quadrant Abd pain, Nausea or vomiting, no Diarrhea or constipation, No GI Bleed, no distention or masses. Positive gallstone with severe abdominal pain and discomfort. GENITOURINARY: Negative for Hematuria or UTI, no kidney stones. INTEGUMENT/BREAST: Negative for any muscular injury with mild osteoarthritis.. HEMATOLOGIC/LYMPHATIC: Negative for bleed or purpura. MUSCULOSKELTAL: Negative for Myalgia or arthralgia. NEURLOGICAL: No LOC, Sz or syncope, blurred vision dizziness or abnormality.. BEHAVIORAL/PSYCH: Negative. ENDOCRINE: Negative. Physical Examination General Appearance: Alert, cooperative, appears stated age. Morbidly obese. Patient appears to be in significant pain. Neck HEENT: Supple, no lymphadenopathy, no thyroid enlargement, no carotid bruits. Lungs: Clear to auscultation without crackles or wheezes no rhonchi, no deformity. Chest Wall: Chest wall normal expansion with deep inspiration no tenderness and no deformity was found on exam, no costochondral pain or discomfort. Heart: Regular rate and rhythm, S1, S2 normal, no murmur, rub or gallop. Back: Symmetric, no curvature, ROM normal, no CVA tenderness. Abdomen: Soft significant discomfort in the midepigastric and right upper quadr ant area with tenderness, no rebound or rigidity. Extremities: Extremities normal, atraumatic, no cyanosis or edema. Pulses: 2+ and symmetric. Skin: Skin color, texture, tugor normal, no rashes or lesions. Neurologic: Alert oriented x3 cranial nerves II through XII intact, no motor deficit, no abnormal balance or gait. Assessment and Plan 1 severe abdominal pain: Combination of acute cholecystitis and cholelithiasis, patient to continue on hydration along with pain management. She is scheduled for laparoscopic cholecystectomy today. 2 acute cholelithiasis and cholecystitis. Laparoscopic cholecystectomy 3 possible ascending cholangitis: Patient was started on Rocephin continue antibiotic watch for any elevated white blood cell or fever. 4 history of asthma: Continue Ventolin inhaler on as-needed basis. 5 severe GERD: Patient will be on pantoprazole 40 mg twice a day. 6 DVT prophylaxis: Patient will be on heparin subcutaneous and knee-high KATHLEEN hose. CODE STATUS: Full code. Dr. Cohen thank you much for the consult if I can be any further help to please let me know. Discharge plan: Home Impression and plan of care have been directed as dictated by the signing physician. Kassandra Dutton nurse practitioner acting as scribe for signing physician. Objective - Vital Signs Vital signs: Vital Signs Temp 98.9 F 08/19/19 07:31 Pulse 78 08/19/19 07:31 Resp 18 08/19/19 07:31 BP 147/83 08/19/19 07:31 Pulse Ox 98 08/19/19 07:31 Intake & Output 08/18/19 08/19/19 08/19/19 18:59 06:59 18:59 Intake Total 1500 Balance 1500 Weight 153.315 kg Intake: Intake, IV Titration 1300 Amount Sodium Chloride 0.9% 1, 1300 000 ml @ 130 mls/hr IV . [id number] [facility] Rx#:[id number] Oral 200 Other: # Voids 2 - Labs CBC & Chem 7: 08/18/19 10:55 08/18/19 10:55 Labs: Abnormal Lab Results - Last 24 Hours (Table) 08/18/19 08/18/19 08/18/19 Range/Units 10:38 10:55 10:55 MCV 79.6 L (80.0-100.0) fL MCH 24.2 L (25.0-35.0) pg MCHC 30.3 L (31.0-37.0) g/dL RDW 15.6 H (11.5-15.5) % Sodium 135 L (137-145) mmol/L Urine Blood Trace H (Negative) Ur Squamous Epith Cells 9 H (0-4) /hpf Urine Mucus Rare H (None) /hpf
[2019-08-19] MEDS ORDERED: HYDROcodone/APAP 5-325MG 1 EACH TAB PO PRN (15:09)
[2019-08-19] MEDS: HYDROcodone/APAP 5-325MG 1 EACH TAB PO PRN (22:39)
[2019-08-20] MEDS: SODIUM CHLORIDE 0.9% 1,000 ML IV SCH (02:11)
[2019-08-20] MEDS: HYDROcodone/APAP 5-325MG 1 EACH TAB PO PRN ×2 (05:08→11:49)
--- NOTE | 2019-08-20 08:47 | P.DS ---
Providers Date of admission: 08/18/19 15:31 Expected date of discharge: 08/20/19 Attending physician: Heath Cohen Primary care physician: Kailash Villa [facility] Course: This a 24-year-old female been to the hospital with acute cholecystitis. Please see hospital chart for details. Patient underwent laparoscopic cholecystectomy. Procedures: Laparoscopic cholecystectomy Patient Condition at Discharge: Good Plan - Discharge Summary Discharge Rx Participant: No New Discharge Prescriptions: New Docusate [Colace] 100 mg PO BID #20 capsule HYDROcodone/APAP 5-325MG [[place] 5-325] 1 tab PO Q6HR PRN #10 tab PRN Reason: Pain Discharge Medication List Docusate [Colace] 100 mg PO BID #20 capsule 08/20/19 [Rx] HYDROcodone/APAP 5-325MG [[place] 5-325] 1 tab PO Q6HR PRN #10 tab 08/20/19 [Rx] Follow up Appointment(s)/Referral(s): Kailash Villa DO [Primary Care Provider] - 1 Week Heath Cohen MD [STAFF PHYSICIAN] - 1 Week Discharge Disposition: HOME SELF-CARE
[2019-08-20 09:09] VITALS: BP 126/72; PULSE 74; RESP 16; TEMP 97.8
[2019-08-20] MEDS: PANTOPRAZOLE 40 MG/10 ML VIAL IVP SCH (09:13)
[2019-08-20] MEDS: KETOROLAC 30 MG/ML 1 ML VIAL IVP PRN (09:17)
--- NOTE | 2019-08-20 09:47 | P.PN ---
Subjective Progress Note Date: 08/20/19 24-year-old female one of Dr. eVe patient with the past medical history of asthma and multiple ovarian cyst who apparently presented to the emergency room at [facility] with significant right upper quadrant discomfort started at 11:00 last night did not let up since patient continued to have significant nausea with no vomiting her symptoms apparently has been on and off previously which is to be very mild this time was severely discomfort patient apparently have kielbasa the night before which trigger significant pain and discomfort. Ended up coming to the emergency department her white blood cell was normal no major abnormality in her liver enzyme. Her abdominal ultrasound was performed and showed cholelithiasis with sludge as well. Patient was started on hydration pain management was seen Dr. Cohen surgery will be planned for intervention for cholecystectomy [facility] tomorrow. Patient was placed on antibiotics for ascending cholangitis with the possibility of an infection in the common duct. 08/18: Patient is seen today in follow-up. She continues to have significant pain to the right upper quadrant and epigastric area. She is scheduled for laparoscopic cholecystectomy today with Dr. Cohen. She has been afebrile, heart rate 78, blood pressure 147/83, pulse ox 98% on room air. Patient is utilizing incentive spirometry and reaching 3000. KATHLEEN hose will be ordered. Anticipate probable discharge home later today. Patient is concerned about going home because she has a 9-month-old baby at home along with 2 older children. 08/19: Patient is seen in follow-up today. She underwent a laparoscopic cholecystectomy yesterday with no postop complications. Her pain is much improved today. She has been afebrile, heart rate 86, blood pressure 111/68, pulse ox 98% on room air. Patient has been started on a regular diet and ate about 50% this morning. She is reaching 2500 ML's on incentive spirometry. Patient is cleared for medicine for discharge home today. Patient will have follow-up with Dr. Villa as an outpatient. Review of Systems CONSTITUTIONAL: Well-developed no acute respiratory distress. Denies fever but denies chills. EYES: No icterus sclerae, no conjunctivitis. EARS, NOSE, MOUTH, THROAT, and FACE: No sore throat, lymphadenopathy, carotid bruits or deformity. RESPIRATORY: No SOB cough or wheezes. History of asthma with no flareup lately. CARDIOVASCULAR: No CP, Palpitation, PND, Orthopnea, or angina. GASTROINTESTINAL: Mild abdominal discomfort, no Nausea or vomiting, no Diarrhea or constipation, No GI Bleed, no distention or masses. GENITOURINARY: Negative for Hematuria or UTI, no kidney stones. INTEGUMENT/BREAST: Negative for any muscular injury with mild osteoarthritis.. HEMATOLOGIC/LYMPHATIC: Negative for bleed or purpura. MUSCULOSKELTAL: Negative for Myalgia or arthralgia. NEURLOGICAL: No LOC, Sz or syncope, blurred vision dizziness or abnormality.. BEHAVIORAL/PSYCH: Negative. ENDOCRINE: Negative. Physical Examination General Appearance: Alert, cooperative, appears stated age. Morbidly obese. Patient appears to be in significant pain. Neck HEENT: Supple, no lymphadenopathy, no thyroid enlargement, no carotid bruits. Lungs: Clear to auscultation without crackles or wheezes no rhonchi, no deformity. Chest Wall: Chest wall normal expansion with deep inspiration no tenderness and no deformity was found on exam, no costochondral pain or discomfort. Heart: Regular rate and rhythm, S1, S2 normal, no murmur, rub or gallop. Back: Symmetric, no curvature, ROM normal, no CVA tenderness. Abdomen: Soft, mild generalized tenderness. Puncture sites show no signs of infection. Extremities: Extremities normal, atraumatic, no cyanosis or edema. Pulses: 2+ and symmetric. Skin: Skin color, texture, tugor normal, no rashes or lesions. Neurologic: Alert oriented x3 cranial nerves II through XII intact, no motor deficit, no abnormal balance or gait. Assessment and Plan 1 severe abdominal pain: Combination of acute cholecystitis and cholelithiasis, status post laparoscopic cholecystectomy. 2 acute cholelithiasis and cholecystitis. Laparoscopic cholecystectomy 3 possible ascending cholangitis ruled out. 4 history of asthma, mild intermittent: Continue Ventolin inhaler on as-needed basis. 5 severe GERD: Patient will be on pantoprazole 40 mg twice a day. 6 DVT prophylaxis: Patient will be on heparin subcutaneous and knee-high KATHLEEN hose. CODE STATUS: Full code. Dr. Cohen thank you much for the consult if I can be any further help to please let me know. Discharge plan: Home Impression and plan of care have been directed as dictated by the signing physician. Kassandra Dutton nurse practitioner acting as scribe for signing physician. Objective - Vital Signs Vital signs: Vital Signs Temp 98 F 08/20/19 06:23 Pulse 86 08/20/19 06:23 Resp 18 08/20/19 06:23 BP 111/68 08/20/19 06:23 Pulse Ox 98 08/20/19 06:23 Intake & Output 08/19/19 08/20/19 08/20/19 18:59 06:59 18:59 Intake Total 1920 Output Total 2370 500 Balance -450 -500 Weight 153.315 kg Intake: IV 1200 Oral 720 Output: Urine 2350 500 Estimated Blood Loss 20 Other: # Voids 1 2 # Bowel Movements 1 - Labs CBC & Chem 7: 08/18/19 10:55 08/18/19 10:55
--- NOTE | 2019-08-27 15:33 | P.OP ---
Date of Procedure: 08/19/19 Preoperative Diagnosis: cholecystitis Postoperative Diagnosis: cholecystitis Procedure(s) Performed: laparoscopic cholecystectomy Anesthesia: BERNABE Surgeon: Heath Cohen Estimated Blood Loss (ml): 5 Pathology: other (gallbladder) Condition: stable Disposition: PACU Description of Procedure: The patient was placed on the operating table. The patient received a general endotracheal tube anesthesia. The patients abdomen was prepped and draped in the usual sterile fashion. Through an infraumbilical stab incision, the fascia of the anterior abdominal wall was grasped with a pair of Kochers and then the Veress needle was placed in the peritoneal cavity. Position of the Veress needle was confirmed with positive drop test. The abdomen was then insufflated. After adequate insufflation, the 10 mm trocar was placed in the peritoneal cavity. Following this the laparoscope was placed in the peritoneal cavity. The patient was placed in the head-up, right side up position and then a 5 mm trocar was placed in the right lateral and right subcostal position under direct visualization. A 8 mm trocar was placed in the epigastric position. The gallbladder was grasped in the fundus and infundibulum. Traction on the gallbladder was placed in the lateral and the cephalad positions. The triangle of Calot was visualized.. The cystic duct was bluntly dissected until the union of the cystic duct and common bile duct was seen. A critical view of safety was achieved. The cystic duct was then divided and sealed with the Harmonic scissors. A PDS Endoloop was then placed throughout the cystic duct stump. The cystic artery divided and sealed with the Harmonic scissors. The gallbladder was then removed from the liver bed using Harmonic scissors. The gallbladder was then extracted through the epigastric port site. Operative field was checked for any bleeding spots and Harmonic scissors was used to coagulate the liver bed. The abdomen was irrigated. The trocars were removed. The skin was closed using interrupted 3-0 Vicryl suture. Dermabond dressing were applied. The patient tolerated the procedure well.
== END 2019-08-20 13:05 | disposition home or self-care (01) ==
LOC: EC 10:19 → 6PED 15:31
PROVIDERS: ADMIT Surgery; ATTEND Surgery
DX: K80.12 Calculus of gallbladder with acute and chronic cholecystitis without obstruction (principal); J45.20 Mild intermittent asthma, uncomplicated; F41.9 Anxiety disorder, unspecified; F32.9 Major depressive disorder, single episode, unspecified; N83.209 Unspecified ovarian cyst, unspecified side; E66.01 Morbid (severe) obesity due to excess calories; Z68.43 Body mass index [BMI] 50.0-59.9, adult; K21.9 Gastro-esophageal reflux disease without esophagitis; Z88.5 Allergy status to narcotic agent; Z88.8 Allergy status to other drugs, medicaments and biological substances; Z88.1 Allergy status to other antibiotic agents; Z82.49 Family history of ischemic heart disease and other diseases of the circulatory system; Z80.9 Family history of malignant neoplasm, unspecified; Z11.59 Encounter for screening for other viral diseases
CPT/HCPCS: 47562; 96376; 96361; 96365; 96375; 99285; 36415; 81025 ×2; 88304; 80053; 82150; 83690; 85025; 81001; 76705; G0378 ×3; U0003; J2250; J1644; J2710; J2405 ×2; J0690; J2001; J0696; J3010; J1885 ×3; J1100; J0330; J2704; C9113 ×2; J1170 ×2

== ENCOUNTER 2020-09-12 14:02 | Emergency (ER) | payer OTHER ==
[2020-09-12 14:13] VITALS: BP 154/79; PULSE 89; RESP 20; TEMP 98.4
--- NOTE | 2020-09-12 14:34 | ED ---
Recheck HPI - General Chief Complaint: Recheck/Abnormal Lab/Rx Stated Complaint: R Breast Discharge Time Seen by Provider: 09/12/20 14:19 Source: patient Mode of arrival: ambulatory Limitations: no limitations - History of Present Illness Initial Comments: Patient is a 25-year-old female presenting to the emergency Department with complaints of drainage from her right breast that started 4 days ago. Patient noticed the drainage and some mild discomfort in the right side of the breast a few days ago. She denies any fevers or chills, no nausea or vomiting. She denies any redness of breath, no injuries or trauma. She is not , not breast-feeding. Patient states she went to a different hospital 2 days ago for same complaint and all they did was check her for . She denies any chest pain or shortness of breath, no cyst or abscess felt. She has no further complaints. - Related Data Previous Rx's Medication Instructions Recorded Docusate [Colace] 100 mg PO BID #20 capsule 08/20/19 HYDROcodone/APAP 5-325MG [[place] 1 tab PO Q6HR PRN #10 tab 08/20/19 5-325] Cephalexin [Keflex] 500 mg PO Q6HR 5 Days #20 cap 09/12/20 Allergies Allergy/AdvReac Type Severity Reaction Status Date / Time azithromycin Allergy Itching Verified 09/12/20 14:13 cetirizine HCl [From Zyrtec] Allergy Swelling Verified 09/12/20 14:13 codeine Allergy Itching Verified 09/12/20 14:13 Review of Systems ROS Statement: Those systems with pertinent positive or pertinent negative responses have been documented in the HPI. ROS Other: All systems not noted in ROS Statement are negative. Past Medical History Past Medical History: Asthma Additional Past Medical History / Comment(s): OVARIAN CYSTS. 3 vag births History of Any Multi-Drug Resistant Organisms: None Reported Past Surgical History: Adenoidectomy, Ear Surgery Past Anesthesia/Blood Transfusion Reactions: No Reported Reaction Past Psychological History: Anxiety, Depression Smoking Status: Never smoker Past Alcohol Use History: None Reported Past Drug Use History: None Reported - Past Family History Mother Family Medical History: Cancer, Hypertension Father History Unknown: Yes Family Medical History: Hypertension General Exam - General Exam Comments Initial Comments: GENERAL: Patient is well-developed and well-nourished. Patient is nontoxic and in no acute distress. HEAD: Atraumatic, normocephalic. EYES: Pupils equal round and reactive to light, extraocular movements intact, sclera anicteric, conjunctiva are normal. Eyelids were unremarkable. ENT: Moist mucous membranes. NECK: Normal range of motion, supple without lymphadenopathy or JVD. LUNGS: Unlabored respirations. Breath sounds clear to auscultation bilaterally and equal. No wheezes rales or rhonchi. HEART: Regular rate and rhythm without murmurs, rubs or gallops. ABDOMEN: Soft, nontender, normoactive bowel sounds. No guarding, no rebound. No masses appreciated. MUSCULOSKELETAL: Normal extremities with adequate strength and normal range of motion, no pitting or edema. No clubbing or cyanosis. SKIN: Warm, Dry, normal turgor, no rashes or lesions noted. Dried blood noted on the right nipple however no active bleeding, no abscess or cyst fell in the entire right breast, no enlarged lymph nodes felt. Limitations: no limitations Course Vital Signs 09/12/20 14:11 Temperature 98.4 F Pulse Rate 89 Respiratory 20 Rate Blood Pressure 154/79 O2 Sat by Pulse 99 Oximetry Medical Decision Making - Medical Decision Making Patient is a 25-year-old female here with complaints of bloody discharge from her right breast and some mild discomfort over the past 4 days. No fevers or chills, no nausea or vomiting, her vital signs are stable. On exam, patient has no signs of an abscess or cyst felt an entire right breast, no enlarged lymph nodes. There is no active bleeding from the nipple. I discussed with patient this could be from a developing cyst or cellulitis in or on the right breast. I recommended trial of antibiotics. I do recommend following up with her primary care physician. Patient is in agreement with this plan of care and is stable for discharge. Case discussed with Dr. Garcia. Disposition Clinical Impression: Bloody discharge from right nipple Disposition: HOME SELF-CARE Condition: Stable Instructions (If sedation given, give patient instructions): Nipple Discharge (ED) Additional Instructions: Please return to the Emergency Department if symptoms worsen or any other concerns. Take antibiotics as prescribed. Tylenol or Motrin for discomfort. Please follow-up with your primary care physician. Prescriptions: Cephalexin [Keflex] 500 mg PO Q6HR 5 Days #20 cap Is patient prescribed a controlled substance at d/c from ED?: No Referrals: Kailash Villa DO [Primary Care Provider] - 1-2 days Time of Disposition: 14:34
== END 2020-09-12 14:40 | disposition home or self-care (01) ==
LOC: EC 14:02
DX: N64.52 Nipple discharge (principal); J45.909 Unspecified asthma, uncomplicated; Z79.891 Long term (current) use of opiate analgesic; Z82.49 Family history of ischemic heart disease and other diseases of the circulatory system
CPT/HCPCS: 99283

== ENCOUNTER → 2020-09-23 | Outpatient (CLI) | payer OTHER ==
--- NOTE | 2020-09-23 10:05 | USB ---
EXAMINATION TYPE: US breast complete RT DATE OF EXAM: 09/23/2020 COMPARISON: NONE CLINICAL HISTORY: N64.52 BREAST DISCHARGE,SORENESS. Right breast bloody nipple discharge Findings: All 4 quadrants of the right breast including the retroareolar region and the right axilla were scann ed with ultrasound. There is extensive ductal ectasia containing debris. In the right breast at 11:00, there is a 0.7 x 0 .6 x 0.6 cm irregular hypoechoic mass and ultrasound-guided biopsy is recommended. IMPRESSION: Ultrasound-guided biopsy is recommended for the right breast mass at 11:00. BI-RADS 4, suspicious.
== END | disposition home or self-care (01) ==
LOC: RADUSWWP 08:49
PROVIDERS: ATTEND Obstetrics & Gynecology
DX: N63.11 Unspecified lump in the right breast, upper outer quadrant (principal)

== ENCOUNTER → 2020-10-12 | Day surgery (SDC) | payer OTHER ==
[2020-10-12 07:21] VITALS: RESP 16
[2020-10-12 08:55] VITALS: BP 128/76; PULSE 85; TEMP 98.6
--- NOTE | 2020-10-12 10:12 | USB ---
EXAMINATION TYPE: US biopsy breast VAD RT DATE OF EXAM: 10/12/2020 CLINICAL HISTORY: R92.8 Abnormal mammogram. TECHNIQUE: Ultrasound guided vaccuum assisted core biopsy of right breast. COMPARISON: 09/23/2020 FINDINGS: The ultrasound guided core biopsy procedure was explained to the patient. The risks, benef its, alternatives were discussed. An informed consent was then obtained. Timeout was performed. The patient was placed in supine positioning for imaging and for the procedure. The overlying skin w as prepped with betadine and sterilely draped in usual sterile fashion. Lidocaine 1% was used as ane sthetic into the skin and deeper breast tissue up to area of concern in the breast. A small skin efe k was made with surgical scalpel. Under ultrasound guidance, a 12-gauge vacuum assisted biopsy device was used to obtain 4 core samples . A biopsy clip was left in lesion. Wing clip was placed within the lesion. Good hemostasis was obtained with direct pressure. Discharge instructions were discussed with the wilmer umana. The patient will follow up with the referring physician for results. Postprocedure mammogram: Due to the patient's uncertain status at this time, the post proce dure mammogram was deferred. This can be performed at a convenient time when the status can be verified. The patient tolerated the procedure well without any immediate complication. The patient was dischar ged to home in stable condition. IMPRESSION: 1. Successful ultrasound guided biopsy right breast. Recommendations: 1. Recommendations are pending pathology results.
== END ==
LOC: RADUSWWP 07:07
PROVIDERS: ATTEND Surgery
DX: R92.8 Other abnormal and inconclusive findings on diagnostic imaging of breast (principal)
CPT/HCPCS: 19083; 88305; A4648; J2001

== ENCOUNTER 2021-04-21 09:37 | Outpatient (CLI) | payer OTHER ==
[2021-04-21 11:13] LABS: Basophils % (A) 0 %; Eosinophils % (A) 1 %; HCT 35.1 % (34.0-46.0); Hypochromasia Moderate; Lymphocytes # (A) 1.4 k/uL (1.0-4.8); Lymphocytes % (A) 18 %; MCH 26.2 pg (25.0-35.0); MCHC 31.4 g/dL (31.0-37.0); MCV 83.4 fL (80.0-100.0); Mean Platelet Volume 8.9; Monocytes # (A) 0.6 k/uL (0-1.0); Monocytes % (A) 8 %; Neutrophils # (A) 5.5 k/uL (1.3-7.7); Neutrophils % (A) 71 %; Platelet Count 261 k/uL (150-450); RDW 14.8 % (11.5-15.5); WBC 7.7 k/uL (3.8-10.6)
[2021-04-21 11:15] LABS: ALT 12 U/L (4-34); AST 18 U/L (14-36); African American GFR (CKD) >90 (>60 ml/min/1.73 sqM); Blood Urea Nitrogen 5 mg/dL (7-17); LDH 350 U/L (313-618); Non-African American GFR(CKD) >90 (>60 ml/min/1.73 sqM); Uric Acid 3.8 mg/dL (3.7-7.4)
[2021-04-21 11:15] LABS: Creatinine,Urine Random 158.7 mg/dL; Protein/Creatinine Ratio,Urine 0.05
[2021-04-21 11:17] LABS: Appearance,Urine Cloudy (Clear); Bacteria,Urine Rare /hpf; Bilirubin,Urine Negative (Negative); Blood,Urine Negative (Negative); Color,Urine Yellow; Glucose,Urine (UA) Negative (Negative); Ketones,Urine Negative (Negative); Leukocyte Esterase,Urine Negative (Negative); Mucus,Urine Occasional /hpf; Nitrite,Urine Negative (Negative); Protein,Urine Trace (Negative); RBC,Urine 2 /hpf (0-5); Specific Gravity,Urine 1.015 (1.001-1.035); Squamous Epithelial Cell,Urine 12 /hpf (0-4); Urobilinogen,Urine <2.0 mg/dL (<2.0); WBC,Urine 1 /hpf (0-5)
== END 2021-04-21 11:40 | disposition home or self-care (01) ==
LOC: FBPOP 09:37
PROVIDERS: ATTEND Obstetrics & Gynecology
DX: O60.03 Preterm labor without delivery, third trimester (principal); Z3A.32 32 weeks gestation of pregnancy; Z88.1 Allergy status to other antibiotic agents; Z88.5 Allergy status to narcotic agent; Z88.8 Allergy status to other drugs, medicaments and biological substances
CPT/HCPCS: 59025; 82570; 84156; 82565; 83615; 84450; 84460; 84520; 84550; 85025; 81001; 83036; G0463; 99215

== ENCOUNTER 2021-05-10 12:14 | Outpatient (CLI) | payer OTHER ==
[2021-05-10 12:49] LABS: Appearance,Urine Clear (Clear); Bilirubin,Urine Negative (Negative); Blood,Urine Negative (Negative); Color,Urine Yellow; Glucose,Urine (UA) Negative (Negative); Ketones,Urine Negative (Negative); Leukocyte Esterase,Urine Negative (Negative); Nitrite,Urine Negative (Negative); Protein,Urine Negative (Negative); Specific Gravity,Urine 1.016 (1.001-1.035); Urobilinogen,Urine <2.0 mg/dL (<2.0)
[2021-05-10 13:05] LABS: Creatinine,Urine Random 125.1 mg/dL; Protein/Creatinine Ratio,Urine 0.056
[2021-05-10 13:24] LABS: Basophils % (A) 0 %; Eosinophils % (A) 0 %; HGB 11.2 gm/dL (11.4-16.0); Hypochromasia Moderate; Lymphocytes % (A) 14 %; MCH 26.6 pg (25.0-35.0); MCHC 32.1 g/dL (31.0-37.0); MCV 82.9 fL (80.0-100.0); Mean Platelet Volume 9.5; Monocytes # (A) 0.6 k/uL (0-1.0); Monocytes % (A) 8 %; Neutrophils # (A) 5.8 k/uL (1.3-7.7); Neutrophils % (A) 75 %; Platelet Count 251 k/uL (150-450); RBC 4.22 m/uL (3.80-5.40); RDW 15.4 % (11.5-15.5); WBC 7.7 k/uL (3.8-10.6)
[2021-05-10 13:38] LABS: ALT 17 U/L (4-34); AST 20 U/L (14-36); African American GFR (CKD) >90 (>60 ml/min/1.73 sqM); Blood Urea Nitrogen 8 mg/dL (7-17); LDH 447 U/L (313-618); Non-African American GFR(CKD) >90 (>60 ml/min/1.73 sqM); Uric Acid 3.9 mg/dL (3.7-7.4)
[2021-05-10 13:52] VITALS: BP 137/80; PULSE 122; RESP 18; TEMP 97.2
--- NOTE | 2021-05-20 11:53 | P.MSEPDOC ---
Presenting Problems - Arrival Data Date of Arrival on Unit: 05/10/21 Time of Arrival on Unit: 12:15 Mode of Transport: Ambulatory - Complaint OB-Reason for Admission/Chief Complaint: PIH Comment: Pt presents for PIH assessment. States headache since yesterday. Cld office and was told to come to triage. Medical History - Information : 5 Para: 3 Term: 3 Abortions: Spontaneous or Elective: 1 Number of Living Children: 3 - Gestational Age Gestational Age by SANTA (wks/days): 34 Weeks and 6 Days Review of Systems - Review of Systems Constitutional: No problems Breast: No problems ENT: No problems Cardiovascular: No problems Respiratory: No problems Gastrointestinal: No problems Genitourinary: No problems Musculoskeletal: No problems Neurological: No problems Skin: No problems Vital Signs - Temperature Temperature: 97.2 F Temperature Source: Temporal Artery Scan - Pulse Right Sitting Brachial Pulse Rate: 122 Pulse Assessment Method: Automatic Cuff - Respirations Respiratory Rate: 18 Oxygen Delivery Method: Room Air O2 Sat by Pulse Oximetry: 97 - Blood Pressure Right Arm Sitting Blood Pressure: 137/80 Blood Pressure Mean: 99 Blood Pressure Source: Automatic Cuff Medical Screen Scoring - Assessment - Baby A Baseline FHR: 140 Heart Rate - NICHD Category: Category I (Normal) NST: Reactive Physician Notification - Physician Notified Physician Notified Date: 05/10/21 Physician Notified Time: 13:40 Physician: Isai Anderson Order Received: Yes - Notification Comment Comment: Spk c\Dr. Anderson, aware of pts arrival to triage. , 34 6/7, c/o GAMEZ 4/10. since yesterday and light bursts/spots in vision since last night. Reviewed BPs. Cat I reactive NST. P/C ratio 0.056, PLT 251. Awaiting remaining labs. Has appt in office tomorrow. States if labs are WNL, pt may be d/c home, to follow up as scheduled. Pts PIH labs WNL, see [employer] Maternal Triage Index - Urgent/Priority 2 Urgent Priority 2: No - Prompt/Priority 3 Prompt Priority 3: Yes Criteria Met for Priority 3: Pt reports home bp 143/90 Disposition - Disposition OB Disposition: Discharge to home, Written follow up instructions reviewed Discharge Date: 05/10/21 Discharge Time: 13:45 I agree with the RN Medical Screening Exam: Yes Physician's MSE Comment: I have neither seen nor examined the patient. Case reviewed; plan agreed upon as documented in EMR&OBIX.: Yes Diagnosis: RELATED CONDITIONS, UNSPECIFIED, THIRD TRIMESTER
== END 2021-05-10 13:45 | disposition home or self-care (01) ==
LOC: FBPOP 12:14
PROVIDERS: ATTEND Obstetrics & Gynecology
DX: O26.893 Other specified pregnancy related conditions, third trimester (principal); R51.9 Headache, unspecified; Z3A.34 34 weeks gestation of pregnancy; Z88.1 Allergy status to other antibiotic agents; Z88.5 Allergy status to narcotic agent; Z88.8 Allergy status to other drugs, medicaments and biological substances
CPT/HCPCS: 59025; 82570; 84156; 82565; 83615; 84450; 84460; 84520; 84550; 85025; 81003; G0463; 99215

== ENCOUNTER 2021-06-08 06:15 | Inpatient (IN) | payer OTHER ==
[2021-06-08] MEDS ORDERED: CARBOPROST TROMETHAMINE 250 MCG/ML 1 ML AMP IM PRN (06:48)
[2021-06-08] MEDS ORDERED: TERBUTALINE 1 MG/ML VIAL SQ PRN (06:48)
[2021-06-08] MEDS ORDERED: OXYTOCIN 10 UNIT/ML 1 ML VIAL IM PRN (06:48)
[2021-06-08] MEDS ORDERED: LIDOCAINE 1% (PF) 10 MG/ML (30 ML SDV) SQ PRN (06:48)
[2021-06-08] MEDS ORDERED: METHYLERGONOVINE 0.2 MG/ML 1 ML AMP IM PRN (06:48)
[2021-06-08] MEDS ORDERED: OXYTOCIN 30 UNITS/500 ML NS 30 UNIT in SALINE 1 500ML.BAG IV SCH ×2 (07:00→13:15)
[2021-06-08 07:20] LABS: Glucose,Whole Blood 86 mg/dL (75-99)
[2021-06-08] MEDS: LACTATED RINGERS 1,000 ML IV SCH ×2 (07:32→11:45)
[2021-06-08 07:52] LABS: Basophils % (A) 0 %; Eosinophils % (A) 1 %; HCT 37.3 % (34.0-46.0); HGB 11.3 gm/dL (11.4-16.0); Hypochromasia Moderate; Lymphocytes # (A) 1.7 k/uL (1.0-4.8); Lymphocytes % (A) 20 %; MCH 25.2 pg (25.0-35.0); MCHC 30.4 g/dL (31.0-37.0); MCV 83.1 fL (80.0-100.0); Mean Platelet Volume 9.1; Monocytes # (A) 0.6 k/uL (0-1.0); Monocytes % (A) 8 %; Neutrophils # (A) 5.7 k/uL (1.3-7.7); Neutrophils % (A) 69 %; Platelet Count 248 k/uL (150-450); RBC 4.49 m/uL (3.80-5.40); RDW 15.5 % (11.5-15.5); WBC 8.2 k/uL (3.8-10.6)
[2021-06-08] MEDS ORDERED: BUTORPHANOL 1 MG/ML 1 ML VIAL IV PRN (08:29)
--- NOTE | 2021-06-08 08:35 | P.HPOB ---
History of Present Illness H&P Date: 06/08/21 Chief Complaint: 39-0/7 weeks, elective induction The patient is a 25-year-old 5 para 3013 admitted at 39-0/7 weeks as established by an 11 week ultrasound. She is admitted for elective induction of labor with all signs reassuring, category 1 heart rate tracing. Her has been complicated by presumptive gestational diabetes as well as having had Covid in February. For both of these, she is undergone weekly testing at her 32 weeks which has been reassuring throughout. She additionally is known to be Rh- and did receive RhoGAM at 28 weeks. Group B strep status is negative. Obstetrical history: 5 para 3013 with 3 term vaginal deliveries and one early miscarriage. Current statistics are listed in history present illness. EDC of 06/15/2021 was established by 11 week ultrasound. Laboratory workup demonstrates a blood type of O- with a negative antibody screen. Rubella status is immune. The remainder of the laboratory workup was within normal limits. She did undergo trisomy testing which was negative as well. One hour Glucola was declined by the patient who then agreed to be treated as a gestational diabetic. Blood sugar surveillance has been spotty at best but is otherwise relatively normal. Group B strep status is negative. Gynecologic history: Unremarkable with no history of any infections to include STDs. Review of Systems Review of systems is confined to history of present illness. Past Medical History Past Medical History: Asthma Additional Past Medical History / Comment(s): ovarian cysts, covid in mar 2021 History of Any Multi-Drug Resistant Organisms: None Reported Past Surgical History: Adenoidectomy, Cholecystectomy, Ear Surgery Past Anesthesia/Blood Transfusion Reactions: Family History of Problems w/ Anesthesia Additional Past Anesthesia/Blood Transfusion Reaction / Comment(s): pt's mother has a hard time coming out of anesthesia Past Psychological History: Anxiety, Depression Smoking Status: Never smoker Past Alcohol Use History: None Reported Past Drug Use History: None Reported - Past Family History Mother Family Medical History: Cancer, Hypertension Additional Family Medical History / Comment(s): colon cancer, stomach cancer Father History Unknown: Yes Family Medical History: CVA/TIA, Hypertension Additional Family Medical History / Comment(s): cva x 3 Medications and Allergies Home Medications Medication Instructions Recorded Confirmed Type Albuterol Sulfate [Ventolin HFA] 1 puff PO TID 04/21/21 06/08/21 History Aspirin 81 mg PO DAILY 04/21/21 06/08/21 History Ondansetron [Zofran] 4 mg PO Q8HR PRN 04/21/21 06/08/21 History Allergies Allergy/AdvReac Type Severity Reaction Status Date / Time azithromycin Allergy Rash/Hives Verified 05/10/21 12:33 cetirizine HCl [From yrte] Allergy Swelling Verified 05/10/21 12:33 codeine Allergy Itching Verified 05/10/21 12:33 Exam Vital Signs Temp Pulse Resp BP Pulse Ox 06/08/21 06:44 96.7 F L 108 H 18 141/82 99 Intake and Output 06/07/21 06/08/21 06/08/21 22:59 06:59 14:59 Other: Weight 142.882 kg In general, this is a morbidly obese female in no acute distress. Her heart has a regular rhythm and rate without murmur. Her lungs are clear to auscultation bilaterally in all whitehead. Her abdomen is obese, gravid, nondistended, has normal active bowel sounds, soft, nontender, without any palpable masses aside from uterine fundus. Her extremities are without any cyanosis, clubbing, or significant edema and are nontender to palpation bilaterally. Digital cervical examination demonstrates the cervix to be 3-4 synovators dilated, 60% effaced, vertex in presentation at -2 station. Artificial rupture of membranes is carried out demonstrating clear fluid and a scalp electrode is applied to follow heart tones. Results Result Diagrams: 06/08/21 07:30 Abnormal Lab Results - Last 24 Hours (Table) 06/08/21 Range/Units 07:30 Hgb 11.3 L (11.4-16.0) gm/dL MCHC 30.4 L (31.0-37.0) g/dL Assessment and Plan (1) Term Current Visit: Yes Status: Acute Code(s): Z34.90 - ENCNTR FOR SUPRVSN OF NORMAL , UNSP, UNSP TRIMESTER SNOMED Code(s): 48098232 Plan: The patient has been admitted for elective induction of labor. Pitocin augmentation has been started and artificial rupture of membranes carried out. She will have close maternal and surveillance and expectant management will be practiced. She has declined epidural analgesia but is otherwise a candidate for IV pain medication should she so choose.
[2021-06-08] MEDS ORDERED: ROPIVACAINE 5MG/ML 20ML VIAL ONE (11:34)
[2021-06-08] MEDS ORDERED: SODIUM CHLORIDE 0.9% 100 ML BAG ONE (11:34)
[2021-06-08] MEDS ORDERED: fentaNYL (PF) 50 MCG/ML 5 ML AMP ONE (11:34)
[2021-06-08] MEDS ORDERED: diphenhydrAMINE 50 MG/ML 1 ML VIAL IVP PRN ×2 (13:14)
[2021-06-08] MEDS ORDERED: HYDROcodone/APAP 7.5-325MG 1 EACH TAB PO PRN (13:14)
[2021-06-08] MEDS ORDERED: SIMETHICONE 80 MG CHEWABLE PO PRN (13:14)
[2021-06-08] MEDS ORDERED: HYDROcodone/APAP 5-325MG 1 EACH TAB PO PRN (13:14)
[2021-06-08] MEDS ORDERED: ZOLPIDEM 5 MG TAB PO PRN (13:14)
[2021-06-08] MEDS ORDERED: BENZOCAINE/MENTHOL SPRAY 1 GM/SPRAY AEROSOL TOPICAL PRN (13:14)
[2021-06-08] MEDS ORDERED: LANOLIN CREAM 5 GM TUBE TOPICAL PRN (13:14)
[2021-06-08] MEDS ORDERED: diphenhydrAMINE 25 MG CAP PO PRN (13:14)
[2021-06-08] MEDS ORDERED: HYDROCORTISONE 2.5% RECTAL CREAM 30 GM TUBE RECTAL PRN (13:14)
[2021-06-08] MEDS ORDERED: diphenhydrAMINE 50 MG CAP PO PRN (13:14)
--- NOTE | 2021-06-08 13:19 | P.PROBDLV ---
Vaginal Delivery Note - . Vaginal Delivery Note: The patient is a 25-year-old 5 para 3013 admitted at 39-0/7 weeks by good dating parameters. She is admitted for elective induction of labor with all signs reassuring. Her was complicated only by presumptive gestational diabetes for which she had only spotty glucose checks but they were relatively within normal limits. She is also Rh- and received RhoGAM at 28 weeks. On labor and delivery, she had Pitocin augmentation started followed by artificial rupture of membranes for clear fluid. She made fairly rapid progress to approximate 6 cm at which time an epidural catheter was placed for analgesia. She then progressed very quickly to complete and had a precipitous delivery of the head prior to uterine the nursing staff arriving after which time the nursing staff delivered the fetus onto the bed where the cord was doubly clamped, cut, and the infant placed in the warmer for resuscitative measures of necessary. She was delivered of a viable 8 lbs. 11 oz. baby girl with Apgars of 9 at 1 minute and 9 at 5 minutes and a precipitous fashion as noted above. I arrived several minutes following delivery with the placenta still in utero. cord blood had been collected. The placenta was delivered spontaneously, intact, and grossly normal with a grossly normal three-vessel cord inserted approximate 3-4 cm from the margin of the placental disc. There were no significant perineal lacerations. All sponge, instrument, needle counts were correct. Estimated blood loss for the case was approximately 100 mL or less. The only complication was the precipitous nature of the delivery in the absence of both myself and the nursing staff. Both mother and are resting comfortably in recovery.
[2021-06-08] MEDS: IBUPROFEN 600 MG TAB PO PRN ×2 (13:34→19:52)
[2021-06-08] MEDS ORDERED: Rhogam IMMUNE GLOBULIN 1,500 UNIT/1 ML IM ONE (16:54)
[2021-06-08] MEDS: SENNOSIDES-DOCUSATE SODIUM 1 EACH TAB PO SCH (19:53)
[2021-06-08] MEDS: ACETAMINOPHEN TAB 325 MG TAB PO PRN (23:42)
[2021-06-09] MEDS: IBUPROFEN 600 MG TAB PO PRN ×3 (02:03→19:44)
[2021-06-09 07:08] LABS: Basophils % (A) 0 %; Eosinophils # (A) 0.1 k/uL (0-0.7); Eosinophils % (A) 1 %; HCT 32.8 % (34.0-46.0); Hypochromasia Marked; Lymphocytes # (A) 1.8 k/uL (1.0-4.8); Lymphocytes % (A) 21 %; MCH 25.8 pg (25.0-35.0); MCHC 30.4 g/dL (31.0-37.0); MCV 84.7 fL (80.0-100.0); Mean Platelet Volume 8.2; Monocytes # (A) 0.8 k/uL (0-1.0); Monocytes % (A) 9 %; Neutrophils # (A) 5.6 k/uL (1.3-7.7); Neutrophils % (A) 65 %; Platelet Count 222 k/uL (150-450); RBC 3.87 m/uL (3.80-5.40); RDW 15.4 % (11.5-15.5); WBC 8.5 k/uL (3.8-10.6)
[2021-06-09] MEDS: SENNOSIDES-DOCUSATE SODIUM 1 EACH TAB PO SCH ×2 (09:08→19:44)
[2021-06-09] MEDS: SERTRALINE 50 MG TAB PO SCH (09:09)
--- NOTE | 2021-06-09 09:15 | P.PNOBGVD ---
Subjective - Subjective Patient reports: Reports appetite normal, Reports voiding normally, Reports pain well controlled, Reports ambulating normally : in NICU (Apparent infection and need for high flow oxygen) Objective - Latest Vital Signs Latest vital signs: Vital Signs Temp Pulse Pulse Resp BP Pulse Ox 06/09/21 04:00 97.8 F 100 16 115/73 06/09/21 00:00 97.8 F 86 16 131/74 06/08/21 20:00 98.2 F 84 18 131/90 06/08/21 16:00 97.8 F 97 18 136/95 99 06/08/21 15:02 97 F L 94 16 137/66 06/08/21 14:40 92 16 132/69 06/08/21 14:10 93 16 131/73 06/08/21 13:55 85 16 129/73 06/08/21 13:40 88 16 134/75 06/08/21 13:25 86 16 128/74 06/08/21 13:10 96.5 F L 95 16 125/75 Intake and Output 06/08/21 06/09/21 06/09/21 22:59 06:59 14:59 Output Total 191 Balance -191 Output: Output, Quantitative 191 Blood Loss Other: # Voids 1 1 - Exam Extremities: Present: normal Abdomen: Present: normal appearance, soft Uterus: Present: normal, firm (Uterine fundus as tonic and nontender below the umbilicus.) - Labs Labs: Abnormal Lab Results - Last 24 Hours (Table) 06/09/21 Range/Units 06:53 Hgb 10.0 L (11.4-16.0) gm/dL Hct 32.8 L (34.0-46.0) % MCHC 30.4 L (31.0-37.0) g/dL Assessment and Plan (1) Term Current Visit: Yes Status: Acute Code(s): Z34.90 - ENCNTR FOR SUPRVSN OF NORMAL , UNSP, UNSP TRIMESTER SNOMED Code(s): 68569137 (2) Precipitous delivery Current Visit: Yes Status: Acute Code(s): O62.3 - PRECIPITATE LABOR SNOMED Code(s): 867802594 Plan: Continue routine care. I would anticipate discharge home tomorrow pending.
[2021-06-09] MEDS: ACETAMINOPHEN TAB 325 MG TAB PO PRN ×2 (15:21→23:14)
[2021-06-10] MEDS: SENNOSIDES-DOCUSATE SODIUM 1 EACH TAB PO SCH (08:25)
[2021-06-10] MEDS: SERTRALINE 50 MG TAB PO SCH (08:25)
[2021-06-10] MEDS: IBUPROFEN 600 MG TAB PO PRN (08:26)
[2021-06-10 10:46] VITALS: BP 131/82
--- NOTE | 2021-06-10 10:58 | P.DS ---
Providers Date of admission: 06/08/21 06:31 Expected date of discharge: 06/10/21 Attending physician: Isai Anderson Primary care physician: Stated None - Discharge Diagnosis(es) (1) Term Current Visit: Yes Status: Acute (2) Precipitous delivery Current Visit: Yes Status: Acute Hospital Course: "The patient is a 25-year-old 5 para 3013 admitted at 39-0/7 weeks by good dating parameters perches admitted for elective induction with all signs reassuring. Her was attempted by presumptive gestational diabetes as well as Covid during the . testing was reassuring throughout the . She additionally was Rh- and received RhoGAM at 28 weeks. On labor and delivery, she had Pitocin started followed by artificial rupture of membranes for clear fluid. She made progress to approximately 6 cm at which time an epidural catheter was placed for analgesia. She then progressed very quickly to complete and delivered a precipitous fashion and the absence of myself or the nursing staff a viable 8 lbs. 11 oz. baby girl with Apgars of 9 at 1 minute and 9 at 5 Ms. The patient's course was unremarkable with vital signs remaining stable and her temperature was afebrile throughout. She was deemed stable for discharge on day #2 and was discharged home to follow-up in the office in 6 weeks' time routinely. Discharge instructions included calling for any significantly increased bleeding or foul-smelling lochia, significantly increased fever abdominal pain, perineal complaints, breast complaints, or anything else that concerned her. She was additionally instructed to have nothing in the vagina for at least 6 weeks time to include intercourse. She understood her instructions and agrees to follow up as noted above. Discharge medications included eiky-dij-fdfannm analgesic pain medications as well as continued vitamins as she has opted to breast- feed. She was additionally provided a prescription for Zoloft 50 mg, 1 by mouth daily, #30 dispensed with 11 refills as she has had issues with depression in the past. Maternal blood type is O- and cord blood was sent for evaluation for the necessity of RhoGAM prior to discharge. Rubella status is immune. The infant remains in the nursery for 7 days of antibiotics as she appears to have an infection for reasons that are unclear. Procedures: #1. Pitocin induction #2. Artificial rupture of membranes #3. Epidural analgesia #4. Precipitous normal spontaneous vaginal delivery Patient Condition at Discharge: Stable Plan - Discharge Summary New Discharge Prescriptions: No Action Ondansetron [Zofran] 4 mg PO Q8HR PRN PRN Reason: Cough Aspirin 81 mg PO DAILY Albuterol Sulfate [Ventolin HFA] 1 puff PO TID Discharge Medication List Albuterol Sulfate [Ventolin HFA] 1 puff PO TID 04/21/21 [History] Aspirin 81 mg PO DAILY 04/21/21 [History] Ondansetron [Zofran] 4 mg PO Q8HR PRN 04/21/21 [History] Follow up Appointment(s)/Referral(s): Isai Anderson MD [STAFF PHYSICIAN] - 6 Weeks Discharge Disposition: HOME SELF-CARE
[2021-06-10 17:06] VITALS: PULSE 85; RESP 16; TEMP 97.8
[2021-06-10] MEDS: ACETAMINOPHEN TAB 325 MG TAB PO PRN (17:13)
== END 2021-06-10 17:22 | disposition home or self-care (01) | DRG 807 ==
LOC: 4FBP 06:31
PROVIDERS: ADMIT Obstetrics & Gynecology; ATTEND Obstetrics & Gynecology
PROC: 10E0XZZ Delivery of Products of Conception, External Approach (ICD-10-PCS; principal; 2021-06-08)
PROC: 10907ZC Drainage of Amniotic Fluid, Therapeutic from Products of Conception, Via Natural or Artificial Opening (ICD-10-PCS; 2021-06-08)
PROC: 3E033VJ Introduction of Other Hormone into Peripheral Vein, Percutaneous Approach (ICD-10-PCS; 2021-06-08)
PROC: 4A0HXCZ Measurement of Products of Conception, Cardiac Rate, External Approach (ICD-10-PCS; 2021-06-08)
PROC: 3E0234Z Introduction of Serum, Toxoid and Vaccine into Muscle, Percutaneous Approach (ICD-10-PCS; 2021-06-08)
DX: O24.429 Gestational diabetes mellitus in childbirth, unspecified control (principal); Z37.0 Single live birth; F32.A Depression, unspecified; O62.3 Precipitate labor; F41.9 Anxiety disorder, unspecified; J45.909 Unspecified asthma, uncomplicated; O26.893 Other specified pregnancy related conditions, third trimester; E66.01 Morbid (severe) obesity due to excess calories; O99.214 Obesity complicating childbirth; Z67.41 Type O blood, Rh negative; O99.344 Other mental disorders complicating childbirth; O99.52 Diseases of the respiratory system complicating childbirth; Z3A.39 39 weeks gestation of pregnancy; Z79.82 Long term (current) use of aspirin; Z79.899 Other long term (current) drug therapy; Z86.16 Personal history of COVID-19; Z80.0 Family history of malignant neoplasm of digestive organs; Z82.3 Family history of stroke; Z82.49 Family history of ischemic heart disease and other diseases of the circulatory system; Z88.1 Allergy status to other antibiotic agents; Z88.5 Allergy status to narcotic agent; Z90.49 Acquired absence of other specified parts of digestive tract
CPT/HCPCS: 85025; 85461; 86850; 86900; 86901

== ENCOUNTER → 2021-09-12 | Outpatient (CLI) | payer OTHER ==
--- NOTE | 2021-09-12 16:28 | XR ---
EXAMINATION TYPE: XR chest 2V DATE OF EXAM: 09/12/2021 COMPARISON: Chest x-ray 07/05/2020 HISTORY: Tuberculosis screening TECHNIQUE: Frontal and lateral views of the chest are obtained. FINDINGS: There is no focal air space opacity, pleural effusion, or pneumothorax seen. The cardiac silhouette size is within normal limits. The osseous structures are intact. IMPRESSION: No acute cardiopulmonary process.
== END | disposition home or self-care (01) ==
LOC: RADXRMAIN 15:34
PROVIDERS: ATTEND Family Medicine
DX: Z11.1 Encounter for screening for respiratory tuberculosis (principal)
CPT/HCPCS: 71046

== ENCOUNTER → 2022-06-28 | Outpatient (CLI) | payer OTHER ==
[2022-06-28 20:56] LABS: Basophils # (A) 0.03 X 10*3/uL (0.00-0.10); Basophils % (A) 0.4 %; Eosinophils # (A) 0.07 X 10*3/uL (0.04-0.35); Eosinophils % (A) 0.9 %; HCT 42.4 % (37.2-46.3); Immature Grans, Automated 0.3 %; Lymphocytes # (A) 2.03 X 10*3/uL (0.90-5.00); Lymphocytes % (A) 26.3 %; MCHC 28.3 g/dL (32.0-37.0); Monocytes # (A) 0.86 X 10*3/uL (0.20-1.00); Monocytes % (A) 11.1 %; NRBC Per 100 WBC 0 /100 WBCS (0.0-0.0); Neutrophils # (A) 4.72 X 10*3/uL (1.80-7.70); Platelet Count 366 X 10*3/uL (140-440); RBC 4.99 X 10*6/uL (4.10-5.20); RDW 14.9 % (11.5-14.5); WBC 7.73 X 10*3/uL (4.50-10.00)
== END | disposition home or self-care (01) ==
LOC: LABPAT 13:04
PROVIDERS: ATTEND Obstetrics & Gynecology
DX: Z30.2 Encounter for sterilization (principal)
CPT/HCPCS: 36415; 85025

== ENCOUNTER 2024-04-27 14:59 | Outpatient (CLI) | payer OTHER ==
[2024-04-27 15:45] LABS: Appearance,Urine Cloudy (Clear); Bilirubin,Urine Negative (Negative); Blood,Urine Negative (Negative); Color,Urine Light Yellow; Glucose,Urine (UA) Negative (Negative); Ketones,Urine Negative (Negative); Leukocyte Esterase,Urine Small (Negative); Mucus,Urine Rare /hpf; Nitrite,Urine Negative (Negative); PH, Urine 6.5 (5.0-8.0); Protein,Urine Trace (Negative); RBC,Urine 1 /hpf (0-5); Specific Gravity,Urine 1.023 (1.001-1.035); Squamous Epithelial Cell,Urine 16 /hpf (0-4); Urobilinogen,Urine <2.0 mg/dL (<2.0); WBC,Urine 3 /hpf (0-5)
[2024-04-27] MEDS: METOCLOPRAMIDE 5 MG/ML 2 ML VIAL IVP STA (15:55)
[2024-04-27 16:01] LABS: Basophils % (A) 0 %; Eosinophils # (A) 0.1 k/uL (0-0.7); Eosinophils % (A) 1 %; HCT 36.2 % (34.0-46.0); HGB 11.1 gm/dL (11.4-16.0); Hypochromasia Marked; Lymphocytes # (A) 1.2 k/uL (1.0-4.8); Lymphocytes % (A) 13 %; MCH 25.1 pg (25.0-35.0); MCHC 30.6 g/dL (31.0-37.0); MCV 81.9 fL (80.0-100.0); Mean Platelet Volume 8.7; Monocytes # (A) 0.5 k/uL (0-1.0); Monocytes % (A) 6 %; Neutrophils # (A) 7.2 k/uL (1.3-7.7); Neutrophils % (A) 79 %; Platelet Count 274 k/uL (150-450); RBC 4.42 m/uL (3.80-5.40); RDW 15.3 % (11.5-15.5); WBC 9.1 k/uL (3.8-10.6)
[2024-04-27 16:19] LABS: Creatinine,Urine Random 135.4 mg/dL; Protein/Creatinine Ratio,Urine 0.037
[2024-04-27 16:35] LABS: ALT 13 U/L (4-34); AST 19 U/L (14-36); African American GFR (CKD) >90 (>60 ml/min/1.73 sqM); Blood Urea Nitrogen 7 mg/dL (7-17); LDH 215 U/L (120-246); Non-African American GFR(CKD) >90 (>60 ml/min/1.73 sqM); Uric Acid 3.9 mg/dL (3.7-7.4)
[2024-04-27 17:03] VITALS: BP 178/80; PULSE 100; RESP 18; TEMP 97.2
--- NOTE | 2024-05-03 12:47 | P.MSEPDOC ---
Presenting Problems - Arrival Data Date of Arrival on Unit: 04/27/24 Time of Arrival on Unit: 14:59 Mode of Transport: Ambulatory - Complaint OB-Reason for Admission/Chief Complaint: PIH, Elevated Blood Pressure Comment: pt presents to triage for elevated bp's at home and headache since last night that is not resolving with tylenol, pt is on labetolol Medical History - Information : 7 Para: 4 Term: 4 : 0 Abortions: Spontaneous or Elective: 2 Number of Living Children: 4 - Gestational Age Gestational Age by SANTA (wks/days): 35 Weeks and 3 Days Review of Systems - Review of Systems Constitutional: No problems Breast: No problems ENT: No problems Cardiovascular: No problems Respiratory: No problems Gastrointestinal: No problems Genitourinary: No problems Musculoskeletal: No problems Neurological: No problems Skin: No problems Vital Signs - Temperature Temperature: 97.2 F Temperature Source: Temporal Artery Scan - Pulse Right Brachial Pulse Rate: 100 Pulse Assessment Method: Automatic Cuff - Respirations Respiratory Rate: 18 Oxygen Delivery Method: Room Air O2 Sat by Pulse Oximetry: 99 - Blood Pressure Right Arm Blood Pressure: 178/80 Blood Pressure Mean: 112 Medical Screen Scoring - Assessment - Baby A Baseline FHR: 130 Heart Rate - NICHD Category: Category I (Normal) NST: Reactive Physician Notification - Physician Notified Physician Notified Date: 04/27/24 - Notification Comment Comment: reactive nst, PIH labs obtained, all wnl, bp's wnl except for the 1st elevated, given reglan iv for headache with good results of resolve of headache, pt has appt tomorrow 04/28 in office, pt will continue to take labetolol as ordered Maternal Triage Index - Maternal Triage Index Presenting for scheduled procedure w/no complaint: No - Stat/Priority 1 Stat Priority 1: No - Urgent/Priority 2 Urgent Priority 2: Yes Provider Notified: Carito Hoyos Provider Notified Time: 15:30 Criteria Met for Priority 2: pt presents to triage for elevated bp's at home and headache since last night that is not resolving with tylenol - Prompt/Priority 3 Prompt Priority 3: No - Non-Urgent/Priority 4 Non-Urgent Priority 4: No Disposition - Disposition OB Disposition: Triage, Discharge to home, Written follow up instructions reviewed Discharge Date: 04/27/24 Discharge Time: 16:45 I agree with the RN Medical Screening Exam: Yes Physician's MSE Comment: I have neither seen nor examined the patient Case reviewed; plan agreed upon as documented in EMR&OBIX.: Yes Diagnosis: MATERNAL CARE FOR PROBLEM, UNSP, THIRD * DO NOT USE *
== END 2024-04-27 16:45 | disposition home or self-care (01) ==
LOC: FBPOP 14:59
PROVIDERS: ATTEND Obstetrics & Gynecology
DX: O36.93X0 Maternal care for fetal problem, unspecified, third trimester, not applicable or unspecified (principal); Z3A.36 36 weeks gestation of pregnancy; Z88.1 Allergy status to other antibiotic agents; Z88.9 Allergy status to unspecified drugs, medicaments and biological substances; Z88.5 Allergy status to narcotic agent
CPT/HCPCS: 59025; 96374; 82570; 84156; 82565; 83615; 84450; 84460; 84520; 84550; 85025; 81001; G0463; J2765; 99215

== ENCOUNTER 2024-05-25 06:00 | Inpatient (IN) | payer OTHER ==
[2024-05-25] MEDS ORDERED: OXYTOCIN 10 UNIT/ML 1 ML VIAL IM PRN (06:20)
[2024-05-25] MEDS ORDERED: miSOPROStoL 200 MCG TAB PO PRN (06:20)
[2024-05-25] MEDS ORDERED: LIDOCAINE 0.5% (PF) 5 MG/ML (50 ML SDV) SQ PRN (06:20)
[2024-05-25] MEDS ORDERED: TERBUTALINE 1 MG/ML VIAL SQ PRN (06:20)
[2024-05-25] MEDS ORDERED: miSOPROStoL 200 MCG TAB RECTAL PRN (06:20)
[2024-05-25] MEDS ORDERED: TRANEXAMIC 1,000 MG/100ML-NACL 1,000 MG in EMPTY BAG 1 BAG IV PRN (06:20)
[2024-05-25] MEDS ORDERED: METHYLERGONOVINE 0.2 MG/ML 1 ML AMP IM PRN (06:20)
[2024-05-25] MEDS ORDERED: CARBOPROST TROMETHAMINE 250 MCG/ML 1 ML AMP IM PRN (06:20)
[2024-05-25 06:25] LABS: Glucose,Whole Blood 83 mg/dL (70-110)
[2024-05-25] MEDS: LACTATED RINGERS 1,000 ML IV SCH (06:41)
[2024-05-25 06:49] LABS: Anisocytosis Slight; Basophils % (A) 0 %; Eosinophils # (A) 0.2 k/uL (0-0.7); Eosinophils % (A) 2 %; HCT 36.7 % (34.0-46.0); HGB 11.1 gm/dL (11.4-16.0); Hypochromasia Moderate; Lymphocytes # (A) 1.5 k/uL (1.0-4.8); Lymphocytes % (A) 18 %; MCHC 30.3 g/dL (31.0-37.0); MCV 82.3 fL (80.0-100.0); Monocytes # (A) 0.7 k/uL (0-1.0); Monocytes % (A) 8 %; Neutrophils % (A) 71 %; Platelet Count 234 k/uL (150-450); RBC 4.45 m/uL (3.80-5.40); RDW 16.1 % (11.5-15.5); WBC 8.5 k/uL (3.8-10.6)
[2024-05-25] MEDS: OXYTOCIN 30 UNITS/500 ML NS 30 UNIT in SALINE 1 500ML.BAG IV SCH (07:14)
[2024-05-25] MEDS ORDERED: BUTORPHANOL 1 MG/ML 1 ML VIAL IV PRN (08:30)
--- NOTE | 2024-05-25 08:36 | P.HPOB ---
History of Present Illness H&P Date: 05/25/24 Chief Complaint: 39-3/7 weeks, induction Patient is a 28-year-old 6 para 4-0-1-4 admitted at 39-3/7 weeks as established by an 8-week ultrasound. She is admitted for elective induction of labor with all signs reassuring, category 1 heart rate tracing. Her pre gnancy has been complicated by gestational diabetes for which she has had good sugar control with diet alone. testing has been reassuring on a weekly basis throughout the third trimester. She also carries a history of precipitous deliveries. She is also known to be Rh- and received RhoGAM at 28 weeks. Group B strep status is negative. Obstetrical history: 6 para 4-0-1-4 with 4 previous term deliveries. She does carry history of precipitous deliveries on several occasions. Current statistics are listed in history of present illness. EDC of 05/29/2024 was established by an 8-week ultrasound. Laboratory workup demonstrates a blood type of O- with a negative antibody screen. Rubella status is immune. The remainder of the laboratory workup was within normal limits. Early Glucola was normal and second trimester Glucola was deferred as the patient preferred to be treated as a diabetic. Group B strep status is negative. Gynecologic history: Unremarkable with no history of any infections to include STDs. Review of Systems Review of systems is confined to history of present illness. Past Medical History Past Medical History: Asthma Additional Past Medical History / Comment(s): ovarian cysts, covid in mar 2021 History of Any Multi-Drug Resistant Organisms: None Reported Past Surgical History: Adenoidectomy, Cholecystectomy, Ear Surgery Additional Past Surgical History / Comment(s): TUBES IN EARS Past Anesthesia/Blood Transfusion Reactions: Family History of Problems w/ Anesthesia Additional Past Anesthesia/Blood Transfusion Reaction / Comment(s): pt's mother has a hard time coming out of anesthesia Past Psychological History: Anxiety, Depression Additional Psychological History / Comment(s): NO MEDS NEEDED AT THIS TIME Smoking Status: Never smoker Past Alcohol Use History: None Reported Past Drug Use History: None Reported - Past Family History Mother Family Medical History: Cancer, Hypertension Additional Family Medical History / Comment(s): colon cancer, stomach cancer Father History Unknown: Yes Family Medical History: CVA/TIA, Hypertension Additional Family Medical History / Comment(s): cva x 3 Medications and Allergies Home Medications Medication Instructions Recorded Confirmed Type Albuterol Sulfate [Ventolin HFA] 1 puff PO TID PRN 04/21/21 05/25/24 History Aspirin 81 mg PO DAILY 04/21/21 05/25/24 History Ondansetron [Zofran] 4 mg PO Q8HR PRN 04/21/21 05/25/24 History Omeprazole [PriLOSEC] 40 mg PO DAILY 04/17/24 05/25/24 History Promethazine HCl [Phenergan] 50 mg RECTAL DIRECTED 04/17/24 05/25/24 History Labetalol [Trandate] 200 mg PO BID 04/27/24 05/25/24 History Labetalol [Trandate] 100 mg PO DAILY 05/25/24 05/25/24 History Allergies Allergy/AdvReac Type Severity Reaction Status Date / Time azithromycin Allergy Rash/Hives Verified 04/17/24 13:24 cetirizine [From Zyrtec] Allergy Rash/Hives Verified 04/27/24 15:13 codeine Allergy Itching Verified 04/17/24 13:24 Exam Vital Signs Temp Pulse Resp BP Pulse Ox 05/25/24 06:15 96.6 F L 107 H 16 141/77 99 Intake and Output 05/24/24 05/25/24 05/25/24 22:59 06:59 14:59 Other: Weight 154.221 kg In general, this is a well-developed, morbidly obese -[place] female in no acute distress. Her heart has a regular rhythm and rate without murmur. Her lungs clear to auscultation bilaterally in all whitehead. Her abdomen is obese, nondistended, gravid, has normal active bowel sounds, soft, nontender, and without any palpable masses aside from uterine fundus. Her extremities are without any cyanosis, clubbing, or significant edema. Digital cervical examination demonstrates her cervix to be 4 cm dilated, 50% effaced, with a vertex and presentation at -2 station. Artificial rupture of membranes is carried out demonstrating clear fluid. A scalp electrode is attached in standard fashion for further monitoring. Results Result Diagrams: 05/25/24 06:25 Abnormal Lab Results - Last 24 Hours (Table) 05/25/24 Range/Units 06:25 Hgb 11.1 L (11.4-16.0) gm/dL MCHC 30.3 L (31.0-37.0) g/dL RDW 16.1 H (11.5-15.5) % Assessment and Plan (1) Gestational diabetes Current Visit: Yes Status: Acute Code(s): O24.419 - GESTATIONAL DIABETES MELLITUS IN , UNSP CONTROL SNOMED Code(s): 35879690 (2) Term Current Visit: Yes Status: Acute Code(s): Z34.90 - ENCNTR FOR SUPRVSN OF NORMAL , UNSP, UNSP TRIMESTER SNOMED Code(s): 79928281 Plan: The patient has been admitted for Pitocin induction which has been started. She has undergone artificial rupture of membranes. She will have close maternal and surveillance and expectant management will be practiced. She is a good candidate for either IV or epidural analgesia should she so choose.
[2024-05-25] MEDS: CALCIUM CARBONATE 500 MG CHEWABLE PO PRN (08:42)
[2024-05-25] MEDS ORDERED: SODIUM CHLORIDE 0.9% 250 ML BAG ONE (10:46)
[2024-05-25] MEDS ORDERED: ROPIVACAINE 5 MG/ML 30 ML VIAL ONE (10:46)
[2024-05-25] MEDS ORDERED: fentaNYL (PF) 50 MCG/ML 5 ML AMP ONE (10:46)
[2024-05-25] MEDS ORDERED: diphenhydrAMINE 50 MG CAP PO PRN (12:37)
[2024-05-25] MEDS ORDERED: SIMETHICONE 80 MG CHEWABLE PO PRN (12:37)
[2024-05-25] MEDS ORDERED: diphenhydrAMINE 50 MG/ML 1 ML VIAL IVP PRN ×2 (12:37)
[2024-05-25] MEDS ORDERED: ZOLPIDEM 5 MG TAB PO PRN (12:37)
[2024-05-25] MEDS ORDERED: HYDROCORTISONE 2.5% RECTAL CREAM 30 GM TUBE RECTAL PRN (12:37)
[2024-05-25] MEDS ORDERED: BENZOCAINE/MENTHOL SPRAY 1 GM/SPRAY AEROSOL TOPICAL PRN (12:37)
[2024-05-25] MEDS ORDERED: LANOLIN CREAM 1 GM TUBE TOPICAL PRN (12:37)
[2024-05-25] MEDS ORDERED: diphenhydrAMINE 25 MG CAP PO PRN (12:37)
--- NOTE | 2024-05-25 13:48 | P.PROBDLV ---
Vaginal Delivery Note - . Vaginal Delivery Note: Patient is a 28-year-old 6 para 4-0-1-4 who was admitted for elective induction of labor at 39-3/7 weeks by good dating parameters. On labor delivery, all signs are reassuring with a category 1 heart rate tracing her has been complicated by presumptive gestational diabetes for which she has had reportedly normal blood sugars throughout and reassuring testing on a weekly basis. Her was otherwise uncomplicated though she is Rh- and received RhoGAM at 28 weeks. On labor and delivery, she had Pitocin started followed by artificial rupture of membranes for clear fluid. She made fairly rapid progress in the active phase and had an epidural catheter placed for analgesia. She progressed to complete and then pushed over the course of 1 contraction to a normal spontaneous vaginal delivery of a viable 8 pound 5.5 ounce baby boy with Apgars of 9 at 1 minute and 9 at 5 minutes. The placenta was delivered spontaneously, intact, and grossly normal with a grossly normal centrally inserted three-vessel cord. There were no lacerations the perineum, vagina, or cervix. Estimated blood loss for the case was approximately 100 mL. There were no complications. All sponge, instrument, and needle counts were correct. Both mother and infant are resting comfortably in recovery.
[2024-05-25] MEDS: ONDANSETRON 4 MG/2 ML VIAL IVP STA (14:02)
[2024-05-25] MEDS: ACETAMINOPHEN TAB 500 MG TAB PO PRN (15:34)
[2024-05-25] MEDS: Rhogam IMMUNE GLOBULIN 1,500 UNIT/1 ML IM ONE (15:54)
[2024-05-25] MEDS: IBUPROFEN 800 MG TAB PO PRN (20:11)
[2024-05-25] MEDS: SENNOSIDES-DOCUSATE SODIUM 1 EACH TAB PO SCH (20:11)
[2024-05-26 01:12] VITALS: TEMP 97.8
[2024-05-26] MEDS: IBUPROFEN 800 MG TAB PO PRN (04:12)
[2024-05-26 05:53] LABS: Anisocytosis Slight; Basophils % (A) 0 %; Eosinophils # (A) 0.1 k/uL (0-0.7); Eosinophils % (A) 1 %; HCT 33.6 % (34.0-46.0); Hypochromasia Moderate; Lymphocytes # (A) 1.7 k/uL (1.0-4.8); Lymphocytes % (A) 19 %; MCH 24.8 pg (25.0-35.0); MCHC 29.9 g/dL (31.0-37.0); MCV 82.9 fL (80.0-100.0); Mean Platelet Volume 9.6; Monocytes # (A) 0.8 k/uL (0-1.0); Monocytes % (A) 9 %; Neutrophils # (A) 6.4 k/uL (1.3-7.7); Neutrophils % (A) 69 %; Platelet Count 218 k/uL (150-450); RBC 4.05 m/uL (3.80-5.40); RDW 16.3 % (11.5-15.5); WBC 9.3 k/uL (3.8-10.6)
--- NOTE | 2024-05-26 08:31 | P.DS ---
Providers Date of admission: 05/25/24 06:00 Expected date of discharge: 05/26/24 Attending physician: Isai Anderson Primary care physician: Stated None - Discharge Diagnosis(es) (1) Gestational diabetes Current Visit: Yes Status: Acute (2) Term Current Visit: Yes Status: Acute Hospital Course: The patient is a 28-year-old 6 para 4-0-1-4 admitted at 39-3/7 weeks by good dating parameters. She is admitted for elective induction with all signs reassuring. Her was complicated by presumptive gestational diabetes with good sugar control throughout her and reassuring testing throughout the third trimester on a weekly basis. She is additionally Rh- and received RhoGAM at 28 weeks. Group B strep status was negative. On labor and delivery, she had Pitocin started and underwent artificial rupture of membranes. She had an epidural catheter placed during the active phase of labor and progressed fairly quickly to complete. She then pushed to a normal spontaneous vaginal delivery over 1 contraction of a viable 8 pound 5.5 ounce baby boy with Apgars of 9 at 1 minute and 9 at 5 minutes. Her course was unremarkable with vital signs remaining stable and her temperature was afebrile throughout. She was deemed stable for discharge on day #1 and was discharged home to follow-up in the office in 6 weeks time routinely. Discharge instructions included calling for any significantly increased bleeding or foul-smelling lochia, significantly increased fever or abdominal pain, perineal complaints, breast complaints, or anything else that concerned her. She was additionally instructed to have nothing in the vagina for at least 6 weeks time to include intercourse. She understood her instructions and agrees to follow-up as noted above. Discharge medications included continued vitamins as she has opted to breast-feed. She was otherwise to use [id number] analgesic pain medications. Maternal blood type is O- and cord blood was sent for evaluation for the necessity of RhoGAM prior to discharge. Rubella status is immune. Procedures: #1. Pitocin induction #2. Artificial rupture of membranes #3. Epidural analgesia #4. Spontaneous vaginal delivery Patient Condition at Discharge: Stable Plan - Discharge Summary New Discharge Prescriptions: No Action Ondansetron [Zofran] 4 mg PO Q8HR PRN PRN Reason: Cough Aspirin 81 mg PO DAILY Omeprazole [PriLOSEC] 40 mg PO DAILY Promethazine HCl [Phenergan] 50 mg RECTAL DIRECTED Labetalol [Trandate] 200 mg PO BID Labetalol [Trandate] 100 mg PO DAILY Albuterol Sulfate [Ventolin HFA] 1 puff PO TID PRN PRN Reason: Asthma Discharge Medication List Albuterol Sulfate [Ventolin HFA] 1 puff PO TID PRN 04/21/21 [History] Aspirin 81 mg PO DAILY 04/21/21 [History] Ondansetron [Zofran] 4 mg PO Q8HR PRN 04/21/21 [History] Omeprazole [PriLOSEC] 40 mg PO DAILY 04/17/24 [History] Promethazine HCl [Phenergan] 50 mg RECTAL DIRECTED 04/17/24 [History] Labetalol [Trandate] 200 mg PO BID 04/27/24 [History] Labetalol [Trandate] 100 mg PO DAILY 05/25/24 [History] Follow up Appointment(s)/Referral(s): Isai Anderson MD [STAFF PHYSICIAN] - 07/07/24 11:00 am Discharge Disposition: HOME SELF-CARE
[2024-05-26 09:47] VITALS: BP 126/84; PULSE 70; RESP 16
== END 2024-05-26 14:00 | disposition home or self-care (01) | DRG 560 ==
LOC: 4FBP 06:00
PROVIDERS: ADMIT Obstetrics & Gynecology; ATTEND Obstetrics & Gynecology
PROC: 10E0XZZ Delivery of Products of Conception, External Approach (ICD-10-PCS; principal; 2024-05-25)
PROC: 10907ZC Drainage of Amniotic Fluid, Therapeutic from Products of Conception, Via Natural or Artificial Opening (ICD-10-PCS; principal; 2024-05-25)
PROC: 3E033VJ Introduction of Other Hormone into Peripheral Vein, Percutaneous Approach (ICD-10-PCS; principal; 2024-05-25)
DX: O24.420 Gestational diabetes mellitus in childbirth, diet controlled (principal); Z3A.39 39 weeks gestation of pregnancy; Z37.0 Single live birth; Z79.82 Long term (current) use of aspirin; Z79.899 Other long term (current) drug therapy; Z86.16 Personal history of COVID-19
CPT/HCPCS: 85025; 85461; 86850; 86870; 86880; 86900; 86901